=== PATIENT | female | born 1965 | race Caucasian/White ===

== ENCOUNTER → 2017-08-30 19:31 | Outpatient (CLI) | payer OTHER, SELFPAY ==
[2017-09-02 13:50] LABS: HPV Reflexed? NOT INDICATED
== END ==
PROVIDERS: Family Provider Internal Medicine; PCP Internal Medicine; Visit Provider Obstetrics & Gynecology
DX: Z12.4 Encounter for screening for malignant neoplasm of cervix (principal)
CPT/HCPCS: 88175; G0145

== ENCOUNTER → 2017-10-18 16:28 | Outpatient (CLI) | payer OTHER, SELFPAY ==
--- NOTE | 2017-10-18 16:30 | BI_ITS ---
MAMMOGRAPHY - BILATERAL SCREENING REASON FOR EXAM: Female, 52 years old. Routine annual screening examination. PERTINENT HISTORY: Non-contributory. TECHNIQUE: Digital bilateral breast garima (3D mammographic acquisition) in the CC and MLO projections. 2-D mediolateral oblique (MLO) and craniocaudad (CC) views of both breasts were obtained. CAD: Full Field Digital Mammography with Computer Added Detection was performed. COMPARISON: Comparison is made with prior study dated September 04, 2016 and September 04, 2015. FINDINGS: Breast Composition: The breasts are heterogeneously dense, which may obscure small masses. There are no dominant masses or suspicious calcifications. No other significant abnormalities are identified. There has been no significant change since the prior study. BI/SCREENING MAMM (CAD), BILAT IMPRESSION: Stable bilateral screening mammogram. Yearly follow-up mammogram recommended. (A) ASSESSMENT CATEGORY: BIRADS Category 1: Negative. A letter regarding these results will be sent to the patient by the facility within 30 days. Approximately 10% of breast cancers are not detected by mammography. A normal mammogram should not delay biopsy of a clinically suspicious abnormality. [id number] Electronically Signed: Temo Allen MD at 9:26 EDT Tel [phone], Service support ,
== END ==
PROVIDERS: Family Provider Internal Medicine; PCP Internal Medicine; Visit Provider Obstetrics & Gynecology
DX: Z12.31 Encounter for screening mammogram for malignant neoplasm of breast (principal)
CPT/HCPCS: 77063; 77067

== ENCOUNTER → 2018-02-04 08:52 | Outpatient (CLI) | payer OTHER, SELFPAY ==
--- NOTE | 2018-02-04 08:54 | BI_ITS ---
MAMMOGRAPHY - UNILATERAL DIAGNOSTIC: LEFT BREAST REASON FOR EXAM: Female, 52 years old. 4 day history of left-sided breast pain and swelling with redness. The patient is on antibiotics. PERTINENT HISTORY: Non-contributory. TECHNIQUE: Digital unilateral breast garima (3D mammographic acquisition) in the CC and MLO projections. 2-D mediolateral oblique (MLO) and craniocaudad (CC) views of the left breast were obtained. 90 degree lateral and compression spot view of the left breast was obtained as well. CAD: Full Field Digital Mammography with Computer Added Detection was performed. COMPARISON: Comparison is made with prior study dated October 18, 2017. FINDINGS: Breast Composition: The breasts are heterogeneously dense, which may obscure small masses. There now is evidence of a persistent area of architectural distortion in the deep midportion of the left breast. Correlation with ultrasound is recommended. No other significant abnormalities are identified. BI/DIAG MAMM W/CAD, UNILAT IMPRESSION: New persistent area of architectural distortion is seen in the mid deep portion of the left breast as described. Correlation with ultrasound is recommended. ASSESSMENT CATEGORY: BIRADS Category 0: Incomplete. Need additional imaging evaluation. A letter regarding these results will be sent to the patient by the facility within 30 days. Approximately 10% of breast cancers are not detected by mammography. A normal mammogram should not delay biopsy of a clinically suspicious abnormality. Electronically Signed: Temo Allen MD at 10:56 EDT Tel [phone], Service support ,
--- NOTE | 2018-02-04 08:56 | US_ITS ---
STUDY: ULTRASOUND BREAST - LEFT REASON FOR EXAM: Female, 52 years old. Left breast palpable abnormality. Redness and swelling of the left breast. TECHNIQUE: Axial and longitudinal images of the LEFT breast were performed with a high resolution ultrasound transducer. COMPARISON: Mammogram dated February 04, 2018 FINDINGS: LEFT Breast: There is no ultrasound abnormality in the left breast to correlate to the palpable abnormality, redness or swelling. The skin does not appear to be abnormally thickened measuring 3 mm. There are no abnormal fluid collections or masses seen. There is no evidence of cystitis. No suspicious solid masses are seen to suggest malignancy. US/Breast Limited Unilateral IMPRESSION: There is no ultrasound abnormality in the left breast to correlate to the palpable area, swelling or redness. The patient should continue to do monthly self breast exams. If the symptoms do continue, a breast MRI should be considered. ASSESSMENT CATEGORY: BIRADS Category 2: Benign. A letter regarding these results will be sent to the patient by the facility within 30 days. Electronically Signed: Sigrid Parra DO at 14:50 EDT Tel , Service support ,
== END ==
PROVIDERS: Family Provider Internal Medicine; PCP Internal Medicine; Visit Provider Obstetrics & Gynecology
DX: N63.22 Unspecified lump in the left breast, upper inner quadrant (principal)
CPT/HCPCS: 76642; 77061; 77065; G0279

== ENCOUNTER → 2018-10-27 | Outpatient (CLI) | payer OTHER, SELFPAY ==
--- NOTE | 2018-10-27 06:59 | BI_ITS ---
MAMMOGRAPHY - BILATERAL SCREENING 3-D TOMOSYNTHESIS REASON FOR EXAM: Female, 53 years old. Bilateral Screening 3-D tomosynthesis PERTINENT HISTORY: No significant family history. TECHNIQUE: 2-D mammograms and 3-D Tomosynthesis of the breast (s) were performed. CAD was performed. COMPARISON: None. FINDINGS: The breast composition is heterogeneously dense that can obscure small breast masses. Scattered benign calcifications are seen. No dense spiculated masses or suspicious microcalcifications are identified. No architectural distortion is identified. There is no skin thickening or retraction. There has been no significant change since the prior study. BI/SCREENING MAMM (CAD), BILAT IMPRESSION: No mammographic signs of malignancy. Routine yearly mammograms recommended. ASSESSMENT CATEGORY: BIRADS Category 1: Negative. A letter regarding these results will be sent to the patient by the facility within 30 days. FOLLOW UP RECOMMENDATION: Yearly follow up mammogram recommended. (A) Approximately 10% of breast cancers are not detected by mammography. A normal mammogram should not delay biopsy of a clinically suspicious abnormality. Electronically Signed: Jose Crowdre MD at 8:15 EDT , Service support ,
== END | disposition home or self-care (01) ==
PROVIDERS: Family Provider Internal Medicine; PCP Internal Medicine; Referring Provider Obstetrics & Gynecology; Visit Provider Obstetrics & Gynecology
DX: Z12.31 Encounter for screening mammogram for malignant neoplasm of breast (principal)
CPT/HCPCS: 77063; 77067

== ENCOUNTER → 2019-06-06 13:35 | Outpatient (CLI) | payer OTHER, SELFPAY ==
--- NOTE | 2019-06-06 13:45 | BI_ITS ---
MAMMOGRAPHY - UNILATERAL DIAGNOSTIC: RIGHT BREAST REASON FOR EXAM: Female, 53 years old. Right breast lumps following a recent breast reduction surgery. PERTINENT HISTORY: Non-contributory. TECHNIQUE: Digital unilateral breast garima (3D mammographic acquisition) in the CC and MLO projections. 2-D mediolateral oblique (MLO) and craniocaudad (CC) views of both breasts were obtained. CAD: Full Field Digital Mammography with Computer Added Detection was performed. COMPARISON: Comparison is made with prior study dated October 27, 2018. FINDINGS: Breast Composition: The breasts are heterogeneously dense, which may obscure small masses. There are no dominant masses or suspicious calcifications. Since prior study, the patient underwent breast reduction surgery. Now with evidence of the linear densities in the inferior lateral aspect of the right breast at the site of the surgical incision. Correlation with ultrasound is recommended. No other significant abnormalities are identified. BI/DIAG MAMM W/CAD, UNILAT IMPRESSION: Status post breast reduction surgery with the postsurgical changes. Correlation with ultrasound of the right breast is recommended. ASSESSMENT CATEGORY: BIRADS Category 0: Incomplete. Need additional imaging evaluation. A letter regarding these results will be sent to the patient by the facility within 30 days. Approximately 10% of breast cancers are not detected by mammography. A normal mammogram should not delay biopsy of a clinically suspicious abnormality. Electronically Signed: Temo Allen, at 15:31 EST , Service support ,
--- NOTE | 2019-06-06 13:45 | US_ITS ---
STUDY: ULTRASOUND BREAST - RIGHT REASON FOR EXAM: Female, 53 years old. Palpable lumps in the right breast following recent breast reduction surgery. TECHNIQUE: Axial and longitudinal images of the RIGHT breast were performed with a high resolution ultrasound transducer. # OF IMAGES: 18 COMPARISON: Comparison is made with prior mammogram done earlier in the day. FINDINGS: RIGHT Breast: The abnormality corresponds to a 8 mm x 7 mm x 7 mm isoechoic nodule at the 11:00 position of the breast. This is in the retroareolar region. This may represent postoperative changes. Incidental note is made of a 4 mm x 3 mm x 4 mm cyst at the 8:00 position of the breast at 4 cm from the nipple. US/Breast Limited Unilateral IMPRESSION: The palpable abnormality corresponds to an 8 mm x 7 mm x 7 mm hypoechoic nodule in the retroareolar region of the breast at the 11:00 radiant. This most likely represents postoperative changes. ASSESSMENT CATEGORY: BIRADS Category 2: Benign. A letter regarding these results will be sent to the patient by the facility within 30 days. Electronically Signed: Temo Allen, at 14:04 EST , Service support ,
== END ==
PROVIDERS: Family Provider Internal Medicine; PCP Internal Medicine; Referring Provider Obstetrics & Gynecology; Visit Provider Obstetrics & Gynecology
DX: N63.10 Unspecified lump in the right breast, unspecified quadrant (principal)
CPT/HCPCS: 76642; 77061; 77065; G0279

== ENCOUNTER → 2019-06-08 15:26 | Outpatient (CLI) | payer OTHER, SELFPAY ==
[2019-06-08 15:10] VITALS: BMI 26.5
--- NOTE | 2019-06-08 15:28 | RAD_ITS ---
STUDY: X-RAY - LEFT KNEE REASON FOR EXAM: Pain, injury. TECHNIQUE: 4 view(s) of the knee. COMPARISON: None. FINDINGS: Normal visualized distal femur. Normal visualized proximal tibia and fibula. Normal proximal tibiofibular articulation. Normal medial femorotibial compartment. Normal lateral femorotibial compartment. Normal patellofemoral articulation. The soft tissue structures are unremarkable. RAD/Knee 4 or More Views IMPRESSION: Normal x-ray examination of the left knee. Electronically Signed: Magdiel Madsen MD at 15:56 EST Tel , Service support ,
== END ==
PROVIDERS: Family Provider Internal Medicine; PCP Internal Medicine; Referring Provider Orthopaedic Surgery; Visit Provider Orthopaedic Surgery
DX: M25.562 Pain in left knee (principal)
CPT/HCPCS: 73564

== ENCOUNTER 2019-06-22 16:30 | Outpatient (RCR) | payer OTHER, SELFPAY ==
[2019-06-08 15:10] VITALS: BMI 26.5
--- NOTE | 2019-06-15 18:06 | HP.PTEVAL_ITS ---
Patient's Visit Information MARTY KOCH is a 53 year old F referred to Physical Therapy by Cecile Adams DO with a diagnosis of L knee meniscus tear. Date of Evaluation: 06/15/19 Physical Therapist: RAMESH RileyT, OCS, CSCS - Visit Plan Frequency: 1x/Week Duration: 4-6 Weeks Plan: Pt to work on ROM at home via HEP and gradual progression of safe ex program(reviewed avoidance) and f/u in a week to check ROM and stoop and progress exercises in gym verbally until back to normal. Pt to call prior if condition worsens. - Subjective Findings: L knee pain prior to injecion last week. Prior was 01/11 much of time. Worse with twisting or stooping. Trying to avoid them now. Is lifting and running. Does body weight ex yesterday without problem adn ran a mile without incident yesterday. Could not have done any of that last week. Now cannot do jump squat. It was insidious onset in the last month and a half. Enjoys hiking alot and was not a problem 3 months ago. Sleep OK now but not prior to i njection. 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 Limped last week. Life is normal for last couple days. 85% better since injection. - Pain L knee Pain Intensity (Out of 10): 0 Pain Intensity Range: 0, 4 - Objective Walking without deficit, jogging well, steps reciprocal almost jogging without deficit. Squat past 90 without pain but stooping hurts L medially. aROM hurts end range of L knee flexion but full ext without pain. 0 lag with SLR. Flexibility in quad and hips and HS is excellent. Hip and ankle ROM WNL without pain. 5/5 knee adn hip strength today as well as ankle. No sensation deficitis to gross light touch,. - bounce home, - disco. - ant drawer. - valgus and varus. Slight tenderness medially anteriorly at joint line. - Goals Goal 1:: Full aROM and stoop without pain Goal Time Frame: 4-6 Weeks Goal 2:: Back to full worout without pain.(3 miles running) Goal Time Frame: 4-6 Weeks Goal 3:: I appropr HEP Goal Time Frame: 4-6 Weeks Goal 4:: 0% disability on LEFS. - Rehabilitation Potential Physical Therapy Diagnosis: L knee meniscal injury doing rather well after injection. Rehabilitation Potential: Good - Anticipated Interventions Patient/Client Instruction: Educate patient on: Condition, Plan of Care For the Purpose of:: To decrease pain, To increase ROM Therapeutic Exercise to Include: Strength training, Passive ROM, Active ROM For the Purpose of:: To decrease pain, To increase ROM, To increase tolerance to activity/condition/position Thank you for the opportunity to evaluate your patient. For Medicare and Medicare HMO plans, please review the plan of care and approve it. It will need to be FAXED BACK to us at [phone] for Medicare purposes. For Medicare only, by signing this I certify the plan of care. Please let me know if there are questions or concerns regarding this plan of care. Physician Signature: Date:
--- NOTE | 2019-06-22 16:50 | HP.PTDCSUM ---
HP - PT D/C Summary It has been my pleasure to treat MARTY KOCH under orders from Cecile Adams DO, for the diagnosis of L knee meniscus tear for a total of 2 visit(s). Discharge Date: 06/22/19 Please see the following information for a summary of their discharge status. - Subjective Subjective: No pain since last . Ran a mile daily without pain. Lifted weights and squatted without incident. To doctor in a month. Pt comfortable with continuing her workout on her own and will contact doctor if it worsens again. - Pain L knee Pain Intensity (Out of 10): 0 - Overall Improvement % Improvement: 100 - Objective Objective/Function: No pain today with any of the above mentioned activities(jump, squat jump, side shuffle 100%, carioca, skip) except single leg hop side to side L which hurt slightly and transiently. ROM is full and symmetrical with R although L quad is slightly tighter than R adn pt will stretch this at home. Strength is 5/5 at knees ext adn flexion adn 4+ at hips B. rey without pain . OVERALL DOING EXCELLENT AND READY TO BE ON HER OWN VS CONTINUED PT. - Goals Goal 1:: Full aROM and stoop without pain Goal Progress: Goal Met Goal 2:: Back to full worout without pain.(3 miles running) Goal Progress: Progressing Goal 3:: I appropr HEP Goal Progress: Goal Met Goal 4:: 0% disability on LEFS. Goal Progress: 99% - Plan Plan: D/C - D/C Information Discharge Comments: Doing well and ready to be on her own. Will contact doctor if pain worsens. If there are questions or concerns regarding this patient's physical therapy, please feel free to call me at [phone]. Thank you for the referral of this patient. Sincerely, Bud Dasilva, DPT, OCS, CSCS
== END 2019-06-22 19:00 | disposition home or self-care (01) ==
LOC: PT 16:30
PROVIDERS: Family Provider Internal Medicine; PCP Internal Medicine; Referring Provider Orthopaedic Surgery; Visit Provider Orthopaedic Surgery
DX: S83.207D Unspecified tear of unspecified meniscus, current injury, left knee, subsequent encounter (principal)
CPT/HCPCS: 97161; 97530

== ENCOUNTER → 2019-08-29 | Outpatient (CLI) | payer OTHER, SELFPAY ==
[2019-08-29 12:41] VITALS: BMI 26.5
--- NOTE | 2019-08-29 12:44 | RAD_ITS ---
STUDY: X-RAY - LEFT FOOT CLINICAL: Female, 54 years old. Pt. fell a few feet while cleaning, pain lateral TECHNIQUE: 3 view(s) of the foot. COMPARISON: None. FINDINGS: Study is a left foot in 3 projections shows an oblique nondisplaced fracture through the distal diaphysis and metaphysis of the fifth metatarsal the first through fourth toes are otherwise normal. RAD/Foot min 3 Views IMPRESSION: Oblique nondisplaced fracture through the distal diaphysis and metaphysis of the fifth metatarsal. Electronically Signed: John Wilkinson, at 13:01 EST Tel , Service support ,
== END | disposition home or self-care (01) ==
LOC: HPRAD 12:44
PROVIDERS: PCP Internal Medicine; Referring Provider Physician Assistant; Visit Provider Physician Assistant
DX: S99.922A Unspecified injury of left foot, initial encounter (principal)
CPT/HCPCS: 73630

== ENCOUNTER → 2019-09-04 | Outpatient (CLI) | payer OTHER, SELFPAY ==
[2019-08-29 12:41] VITALS: BMI 26.5
--- NOTE | 2019-09-04 13:26 | RAD_ITS ---
STUDY: X-RAY - LEFT FOOT CLINICAL: Follow-up fracture. TECHNIQUE: 3 view(s) of the foot. COMPARISON: Radiographs 08/29/2019. FINDINGS: Normal talus, calcaneus, and tarsal bones. Normal visualized subtalar, talonavicular, calcaneocuboid, tarsal and tarsometatarsal articulations. There is no interval change of the essentially nondisplaced oblique fracture of the distal diaphysis/neck of the fifth metatarsal. Normal metatarsophalangeal joint of the great toe. Normal tibial and fibular sesamoid bones. There is a bipartite tibial sesamoid.. Normal interphalangeal joint of the great toe. Normal phalanges of the great toe. Normal second through fifth metatarsophalangeal joints. Normal interphalangeal joints and phalanges of the lesser toes. The soft tissue structures are unremarkable. RAD/Foot min 3 Views IMPRESSION: No interval change of fifth metatarsal fracture. Electronically Signed: Magdiel Madsen MD at 14:32 EST Tel , Service support ,
== END | disposition home or self-care (01) ==
LOC: HPRAD 13:26
PROVIDERS: PCP Internal Medicine; Referring Provider Physician Assistant; Visit Provider Physician Assistant
DX: S92.353A Displaced fracture of fifth metatarsal bone, unspecified foot, initial encounter for closed fracture (principal)
CPT/HCPCS: 73630

== ENCOUNTER → 2019-09-11 | Outpatient (CLI) | payer OTHER, SELFPAY ==
[2019-09-11 13:57] VITALS: BMI 26.5
--- NOTE | 2019-09-11 14:00 | RAD_ITS ---
STUDY: X-RAY - LEFT FOOT CLINICAL: Pain, fracture 2 weeks ago. TECHNIQUE: 3 view(s) of the foot. COMPARISON: Radiographs 09/04/2019. FINDINGS: Normal talus, calcaneus, and tarsal bones. Normal visualized subtalar, talonavicular, calcaneocuboid, tarsal and tarsometatarsal articulations. There is no interval change of the essentially nondisplaced oblique fracture of the distal diaphysis/neck of the fifth metatarsal. Normal metatarsophalangeal joint of the great toe. Normal tibial and fibular sesamoid bones. There is a bipartite tibial sesamoid. Normal interphalangeal joint of the great toe. Normal phalanges of the great toe. Normal second through fifth metatarsophalangeal joints. Normal interphalangeal joints and phalanges of the lesser toes. The soft tissue structures are unremarkable. RAD/Foot min 3 Views IMPRESSION: No interval change of fifth metatarsal fracture. Electronically Signed: Magdiel Madsen MD at 13:54 EDT Tel , Service support ,
== END | disposition home or self-care (01) ==
LOC: HPRAD 14:00
PROVIDERS: PCP Internal Medicine; Referring Provider Physician Assistant; Visit Provider Physician Assistant
DX: S92.353A Displaced fracture of fifth metatarsal bone, unspecified foot, initial encounter for closed fracture (principal)
CPT/HCPCS: 73630

== ENCOUNTER → 2019-10-03 | Outpatient (CLI) | payer OTHER, SELFPAY ==
[2019-09-11 13:57] VITALS: BMI 26.5
--- NOTE | 2019-10-03 10:00 | RAD_ITS ---
STUDY: X-RAY - LEFT FOOT CLINICAL: Pain, fracture follow-up. TECHNIQUE: 3 view(s) of the foot. COMPARISON: Radiographs 09/11/2019. FINDINGS: Normal talus, calcaneus, and tarsal bones. Normal visualized subtalar, talonavicular, calcaneocuboid, tarsal and tarsometatarsal articulations. There is no significant change of the essentially nondisplaced oblique fracture of the fifth metatarsal. Normal metatarsophalangeal joint of the great toe. Normal tibial and fibular sesamoid bones. There is a bipartite tibial sesamoid. Normal interphalangeal joint of the great toe. Normal phalanges of the great toe. Normal second through fifth metatarsophalangeal joints. Normal interphalangeal joints and phalanges of the lesser toes. The soft tissue structures are unremarkable. RAD/Foot min 3 Views IMPRESSION: No significant change of fifth metatarsal fracture. Electronically Signed: Magdiel Madsen MD at 10:22 EDT Tel , Service support ,
== END | disposition home or self-care (01) ==
LOC: HPRAD 10:00
PROVIDERS: PCP Internal Medicine; Referring Provider Orthopaedic Surgery; Visit Provider Orthopaedic Surgery
DX: M79.672 Pain in left foot (principal)
CPT/HCPCS: 73630

== ENCOUNTER → 2019-10-31 | Outpatient (CLI) | payer OTHER, SELFPAY ==
[2019-10-03 10:08] VITALS: BMI 26.5
--- NOTE | 2019-10-31 09:17 | RAD_ITS ---
STUDY: X-RAY - LEFT FOOT CLINICAL: Continued pain, fracture follow-up. TECHNIQUE: 3 view(s) of the foot. COMPARISON: Radiographs 10/03/2019. FINDINGS: Normal talus, calcaneus, and tarsal bones. Normal visualized subtalar, talonavicular, calcaneocuboid, tarsal and tarsometatarsal articulations. There is an essentially nondisplaced fracture of the fifth metatarsal diaphysis with partial osseous bridging. Normal metatarsophalangeal joint of the great toe. Normal tibial and fibular sesamoid bones. There is a bipartite tibial sesamoid. Normal interphalangeal joint of the great toe. Normal phalanges of the great toe. Normal second through fifth metatarsophalangeal joints. Normal interphalangeal joints and phalanges of the lesser toes. The soft tissue structures are unremarkable. RAD/Foot min 3 Views IMPRESSION: Healing fracture of the fifth metatarsal. Electronically Signed: Magdiel Madsen MD at 9:40 EDT Tel , Service support ,
== END | disposition home or self-care (01) ==
LOC: MTRAD 09:17
PROVIDERS: PCP Internal Medicine; Referring Provider Orthopaedic Surgery; Visit Provider Orthopaedic Surgery
DX: S92.352D Displaced fracture of fifth metatarsal bone, left foot, subsequent encounter for fracture with routine healing (principal)
CPT/HCPCS: 73630

== ENCOUNTER → 2019-11-01 12:41 | Outpatient (CLI) | payer OTHER, SELFPAY ==
[2019-08-10 09:12] VITALS: BMI 26.5
--- NOTE | 2019-08-11 09:46 | HP_ITS ---
Intake Intake Visit Reasons: Left knee Allergies Iodinated Contrast Media [Iodinated Contrast Media - IV Dye] Allergy (Verified 10/22/14 20:14) Hives [facility] Social History (Updated 08/11/19 @ 09:[address] Cecile Adams, ) Smoking Status: Never smoker HPI Left knee: Surgical H&P: Yes Details: Parts of this documentation were recorded by a scribe, this documentation accurately reflects the service provided and the decisions made by me, Dr. Cecile Adams DO 08/10/19 0903. MARTY KOCH is a 54 year old F here today for F/U on left knee. She previously had an injection of her left knee in 06/2019. She states that her pain returned 2 weeks ago and she was running on the treadmill and she started having medial knee pain and she has had this knee pain for about 1.5 weeks and she states that her pain has subsided. She denies having much pain today. Denies numbness, tingling or other associated symptoms. She does have painful mechanical knee pain. Denies an MRI. She did have x-rays in 06/[address] [facility] Reports joint pain, Reports joint swelling, Reports limited joint movement, Reports stiffness Skin/Breast Reports system reviewed and no additional complaints, except as docu Neuro Yes system reviewed and no additional complaints, except as docu Ortho Exam Left Knee Knee ROM: Yes ROM-Extension -20 to 0, No ROM-Flexion 0-140 Examination: Yes med jt line tenderness, Yes Lat jt line tenderness, Yes Pain with flexion Assessment & Plan Problems 1. Acute lateral meniscus tear of left knee, subsequent encounter S83.282D Plan We will put her in a brace today so she can ski next week and reviewed the post op restrictions depending on the procedure. Reviewed the pre-operative plans with the patient. Risks and benefits of the procedure were fully explained, including but not limited to infection, neurovascular injury, continued pain, arthritis, stiffness, need for further surgery, re-injury, DVT, PE, general risks of anesthesia, and loss of limb or life. The patient understands all the risks and does wish to proceed with written consent. Follow up post op or sooner if pain, swelling, numbness or associated symptoms, or concerns develop. All questions answered. Patient in agreement of plan. Coding Level of Care Code Off vis,est,level 4 Diagnoses Acute lateral meniscus tear of left knee, subsequent encounter S83.282D ??Encounter type: subsequent encounter 08/11/19 0946 <Electronically signed by Cecile heller DO> Date _ Cecile Adams DO
[2019-10-31 09:34] VITALS: BMI 26.5
== END ==
PROVIDERS: PCP Internal Medicine; Referring Provider Orthopaedic Surgery; Visit Provider Orthopaedic Surgery
DX: R69 Illness, unspecified (principal)

== ENCOUNTER → 2020-01-23 | Outpatient (CLI) | payer OTHER, SELFPAY ==
[2020-01-23 14:12] VITALS: BMI 26.5
--- NOTE | 2020-01-23 14:54 | RAD_ITS ---
STUDY: X-RAY - LEFT FOOT CLINICAL: Follow-up fifth metatarsal fracture. TECHNIQUE: 3 view(s) of the foot. COMPARISON: Radiographs 10/31/2019. FINDINGS: Normal talus, calcaneus, and tarsal bones. Normal visualized subtalar, talonavicular, calcaneocuboid, tarsal and tarsometatarsal articulations. There is healed fracture deformity of the fifth metatarsal diaphysis. Normal metatarsophalangeal joint of the great toe. Normal tibial and fibular sesamoid bones. There is a bipartite tibial sesamoid. Normal interphalangeal joint of the great toe. Normal phalanges of the great toe. Normal second through fifth metatarsophalangeal joints. Normal interphalangeal joints and phalanges of the lesser toes. The soft tissue structures are unremarkable. RAD/Foot min 3 Views IMPRESSION: Healed fifth metatarsal fracture. Electronically Signed: Magdiel Madsen MD at 7:43 EDT Tel , Service support ,
== END | disposition home or self-care (01) ==
LOC: HPRAD 14:53
PROVIDERS: PCP Internal Medicine; Referring Provider Orthopaedic Surgery; Visit Provider Orthopaedic Surgery
DX: M79.672 Pain in left foot (principal)
CPT/HCPCS: 73630

== ENCOUNTER → 2020-01-26 | Outpatient (CLI) | payer OTHER, SELFPAY ==
[2020-01-23 14:12] VITALS: BMI 26.5
--- NOTE | 2020-01-26 16:13 | MRI_ITS ---
HISTORY: Medial knee pain MRI EXAMINATION OF THELeft KNEE COMPARISON: Knee radiographs on June 08, 2019 TECHNIQUE: Coronal proton density and fat-suppressed T2 and oblique thin coronal through the ACL, sagittal proton density and fat-suppressed T2 and axial fat-suppressed T2 # of images including paperwork:198 FINDINGS: Bones: No evidence of marrow edema. No acute fracture. No osseous neoplasm is noted Ligaments and tendons: The iliotibial band, lateral collateral ligament, biceps femoris tendon, medial collateral ligament, popliteus tendon and the posterior cruciate ligament is intact. The anterior cruciate ligament appears intact Extensor mechanism: The quadriceps tendon and the patellar tendon are intact. The medial and lateral retinaculum are intact Knee joint: Minimal joint effusion. Trace amount of fluid within a popliteal cyst. There is also a trace amount of fluid within the deep infrapatellar bursa Medial compartment: The middle one third of the medial meniscus is extruded centrally. A small amount of fluid is seen within the medial collateral ligament bursa. There is a small flap tear involving the free edge middle one third of the medial meniscus. This is seen best on coronal image 16 series 7. The anterior posterior one thirds are unremarkable the articular cartilage is unremarkable Lateral compartment: No evidence of a meniscal tear. The articular cartilage is intact Patellofemoral articulation: The articular cartilage of the patella and trochlear intact MRI/Lower Ext Joint Only (Routine) IMPRESSION: Small flap tear involving the free edge middle one third of the medial meniscus. There is a trace amount of fluid within the medial collateral ligament bursa Small joint effusion as well as trace amount of fluid within a popliteal cyst at 0700 Reported and signed by: Shandra Campos DO Electronically Signed: Shandra Campos DO at 6:59 EDT Tel , Service support ,
== END | disposition home or self-care (01) ==
LOC: MRI 16:13
PROVIDERS: PCP Internal Medicine; Referring Provider Orthopaedic Surgery; Visit Provider Orthopaedic Surgery
DX: S83.242D Other tear of medial meniscus, current injury, left knee, subsequent encounter (principal)
CPT/HCPCS: 73721

== ENCOUNTER 2020-03-28 12:20 | Day surgery (SDC) | payer OTHER, SELFPAY ==
[2020-02-13 10:13] VITALS: BMI 26.5
--- NOTE | 2020-02-13 12:18 | HP_ITS ---
I have re-examined the patient. There are no clinical changes since date of exam. Intake Intake Visit Reasons: LEFT KNEE Accompanied by: self Is patient in pain?: Yes Pain scale (1-10): 2 Allergies Iodinated Contrast Media [Iodinated Contrast Media - IV Dye] Allergy (Verified 10/03/19 10:08) Hives Medications NK 08/23/19 [History Confirmed 02/13/20] PFSH Social History (Updated 02/13/20 @ 12:[address] Cecile Adams, ) Smoking Status: Never smoker HPI LEFT KNEE: Surgical H&P: Yes Details: Parts of this documentation were recorded by a scribe, this documentation accurately reflects the service provided and the decisions made by me, Dr. Cecile Adams DO 02/13/20 1012. MARTY KOCH is a 54 year old F here today for F/U on left knee after having MRI completed. Patient is continuing to have anterior medial knee pain along with painful popping and clicking. States she is unable to jog or run which are things she enjoys. She does not feel instability for giving out. Denies numbness, tingling or other associated symptoms. ROS Musc Reports as per HPI, Reports joint pain, Reports limited joint movement, Reports stiffness Skin/Breast Reports as per HPI Neuro Yes as per HPI Ortho Exam Left Knee Skin/Wound: Yes CDI, No ecchymosis, No erythema, No swelling Examination: Yes med jt line tenderness, Yes Shane's Test Stability: NML: Anterior Drawer, NML: Shreya, NML: Posterior Drawer, NML: Valgus 0, NML: Valgus 30, NML: Varus 0, NML: Varus 30, NML: Dial 90, NML: Dial 30 KNEE: palpable plica Assessment & Plan Problems 1. Acute medial meniscus tear of left knee, subsequent encounter S83.436D Plan personally reviewed patients MRI of the left knee. Patient educated that she does have a medial meniscus tear. treatment options include do nothing or steroid injection or surgical option with meniscus repair vs meniscectomy. Patient wishes to proceed with left medial meniscus repair. Reviewed the pre- operative plans with the patient. Risks and benefits of the procedure were fully explained, including but not limited to infection, neurovascular injury, continued pain, arthritis, stiffness, need for further surgery, re-injury, DVT, PE, general risks of anesthesia, and loss of limb or life. The patient understands all the risks and does wish to proceed with written consent. Educated that she will be on crutches for 6 weeks post op. Wishes to proceed with surgery as soon as we can get her on the schedule. Follow up post op or sooner if pain, swelling, numbness or associated symptoms, or concerns develop. All questions answered. Patient in agreement of plan. Coding Level of Care Code Off vis,est,level 4 Diagnoses Acute medial meniscus tear of left knee, subsequent encounter S83.242D ??Encounter type: subsequent encounter 02/13/20 1235 <Electronically signed by Cecile heller DO> Date _ Cecile Adams DO
[2020-03-04 16:18] VITALS: BMI 26.5
--- NOTE | 2020-03-28 12:38 | OP.PCM_ITS ---
Report of Operation Date of Procedure: 03/28/20 Pre-Operative Diagnosis: left knee med and lat meniscus tear, oa Post-Operative Diagnosis: same Surgery/Procedure Performed:: salk, pmm, lm repair, ext synovectomy car detailer: none Type of Anesthesia:: General Anesthesiologist: Clinton Joyenr Fluids Replaced: 500cc Description of Procedure: Preop note Patient is a 54-year-old female with continued left knee pain and instability pain along the medial and lateral joint lines. MRI confirms medial meniscus tear questionable lateral meniscus tear and some little bit of arthritic changes. Risk-benefit alternatives surgery discussed with patient risk include but not limited to blood loss, blood clot, infection, neurovascular, failure procedure, loss of life and loss of limb. Patient is aware of like proceed with left knee arthroscopy appears indicated. We discussed the current risk associated COVID-19. While it is understood that there is a community spread of COVID 19 the risk of shelly COVID-19 [address] [facility] is very low, however, the risk cannot be completely mitigated because of the community spread of the disease. We discussed in detail the risk of exposure to and or potential harm posed by the COVID-19 virus with having a surgery/procedure at this time versus the risk of delaying the surgery/procedure. Is not possible to know either the risk of delaying the surgery procedure or chance of getting an infection with perfect accuracy, but a joint decision was made to proceed at this time with a schedule surgery/procedure as indicated on the consent form. Patient was notified that we will need to comply with any screening or testing [facility] wishes to perform or that surgery may be delayed for any positive results. Operative note Patient seen and examined preop holding her. Left knee was marked. Patient brought to the operating room placed supine on the operating table. Signed, anesthesia, antibiotics were administered. Left leg was prepped and draped usual sterile technique with a tourniquet around her upper thigh. All bony prominences well-padded and SCDs placed on her contralateral limb. Left dressings were applied and a brace was applied. Elevate exsanguinated tourniquet was raised her pressure of 250 torr. We marked out anterior lateral anteromedial portal placements. We then created anterior lateral portal with an 11 blade began a diagnostic arthroscopy. Patellofemoral joint was unremarkable moved to the medial joint line. The medial joint line we then created anteromedial portal with under direct visualization. We then probed the unstable meniscus is actually flapped into the medial joint line we pulled it out unable to truncate the unstable radial meniscus tear. We then there was extensive synovitis in the anteromedial anterolateral recesses anteromedial anterior lateral joint which was then resected. The ACL PCL was present within the notch. The moved to the lateral joint line. She had grade 2 fibrillated changes in the central aspect of the lateral tibial plateau as well as the lateral femoral condyle which were gently debrided. The lateral meniscus was then probed it was unstable with a visible tear at red red border from the area of the popliteus tendon posterior to the posterior horn the horn with itself was intact. Then used a shaver and a rasp to debride back the tear which was at the red red borders we decided to repair it. We then used 3 reverse curved insert for reverse curve in standard technique and then reinserted the probe with good stable meniscus. The knee was then irrigated copious muscle sterile saline tourniquet is deflated for total working time of 30 minutes. Portals were closed with interrupted erupted 4-0 nylon stitches. Patient taught procedure well no complication transferred recovery room in stable condition Postoperative note non weightbearing left leg Follow-up on Wednesday with Andrés brace locked in extension during ambulation and at night elevate, ice, ankle pumps Pharmacy has prescription Call with increased pain numbness pain numbness tingling or other issues arise Dragon disclaimer this note was generated with [employer] dictation software. It may contain incorrect words, spelling, and punctuation that were not noted in checking the note before signing. Grafts/Implants Used: 360 fast fix reverse curved -3
--- NOTE | 2020-03-28 12:38 | PCM.DC.ORTHO ---
Discharge Diet: No Restrictions - ttwb operative limb, elevate toes above nose, ankle pumps, ice; follow up on wednesday with joann for dressing change and brace adjustment, call with concerns Discharge Activity: May Not Drive May shower in (days): 1 Ice area for (Minutes): 20 - Every hour while awake. Weight Bearing Status: Weight bearing as tolerated Keep extremity elevated above heart level: Operative Extremity Call your doctor if your incision/area has: Continuous Slow Oozing, Sudden Increased Bleeding, Increased Pain/ Swelling, Increased Redness, Foul Smelling Discharge Call your doctor if you observe: Fever of 101 or Higher, Coldness, Increased Pain, Numbness or Tingling, Change in Color, Calf discomfort Allergies/Adverse Reactions: Allergies Iodinated Contrast Media [Iodinated Contrast Media - IV Dye] Allergy (Verified 03/28/20 13:19) Hives Medications to take at Discharge simvastatin 40 mg tablet 40 mg PO QODAY 03/04/20 L.acidoph,Paracasei, B.lactis [Probiotic] 1 ea PO DAILY 03/21/20 Methylcellulose [Fiber] 500 mg PO BID 03/21/20 Multivit with Calcium,Iron,Min [Multiple Vitamins For Women] 1 ea PO DAILY 03/21/20 Oxycodone HCl/Acetaminophen [Percocet 5/325] 1 - 2 tab PO Q6H PRN PRN 5 Days #28 tab 03/28/20 The following prescriptions were given: Oxycodone HCl/Acetaminophen [Percocet 5/325] 1 - 2 tab PO Q6H PRN PRN 5 Days #28 tab PRN Reason: Pain Transmission Status: Received by [facility] Orders to be completed after discharge: CORONAVIRUS 19, ISABEL SENDOUT Time Frame: 03/22/20, Facility: [facility], Location: Laboratory Primary Care Physician: Erna Hope DO [Primary Care Provider] - Test Results: Test results from this visit will be discussed in further detail at your follow-up appointment, if applicable. Please Follow Up With: Cecile Adams DO - [phone]
[2020-03-28 13:01] VITALS: BP 120/79; PULSE 82; RESP 16; TEMP 37.3; O2SAT 100; BMI 27.3
[2020-03-28] MEDS: Lactated Ringers 1,000 ML 100 ML IV ×2 (13:19→15:00)
[2020-03-28] MEDS: Epinephrine (1 mg/ml) 1 MG/ML VIAL (15:34)
[2020-03-28] MEDS: Mupirocin Ointment 22gm Tube 1 APPLIC (15:34)
[2020-03-28] MEDS: Bupiv/Epi 0.25% 30 ML Vial (15:34)
[2020-03-28] MEDS: Cefazolin 2 GM in 0.9% Normal Saline 100 ML IV (16:20)
[2020-03-28 17:17] VITALS: BP 120/75; BP 120/79; PULSE 86; RESP 16; TEMP 37.1; O2SAT 100
[2020-03-28 17:39] VITALS: BP 120/71; BP 120/79; PULSE 81; RESP 16; O2SAT 97
[2020-03-28 17:44] VITALS: BP 102/88; BP 120/79; PULSE 78; RESP 16; TEMP 37.1; O2SAT 99
[2020-03-28] MEDS: HYDROcodone Bitartrate/Apap 5/325 Tablet PO (17:51)
[2020-03-28 18:53] VITALS: BP 120/79; BP 98/62; PULSE 72; RESP 16; TEMP 36.7; O2SAT 99
== END 2020-03-28 18:55 | disposition home or self-care (01) ==
LOC: SDC 12:20 → AC 12:22
PROVIDERS: PCP Internal Medicine; Referring Provider Orthopaedic Surgery; Visit Provider Orthopaedic Surgery
PROC: (CPT 29882; principal; 2020-03-28 13:45)
DX: S83.242A Other tear of medial meniscus, current injury, left knee, initial encounter (principal); S83.282A Other tear of lateral meniscus, current injury, left knee, initial encounter; M17.12 Unilateral primary osteoarthritis, left knee; E78.00 Pure hypercholesterolemia, unspecified; Z79.899 Other long term (current) drug therapy; X58.XXXA Exposure to other specified factors, initial encounter; Y93.89 Activity, other specified; Y92.89 Other specified places as the place of occurrence of the external cause; Y99.8 Other external cause status
CPT/HCPCS: 01400; 29876; 29880; J7120; J2405

== ENCOUNTER 2020-06-20 16:00 | Outpatient (RCR) | payer OTHER, SELFPAY ==
[2020-04-09 15:18] VITALS: BMI 27.3
--- NOTE | 2020-04-11 15:52 | HP.PTEVAL ---
Patient's Visit Information MARTY KOCH is a 54 year old F referred to Physical Therapy by Dr. Cecile Adams DO with a diagnosis of L knee medial meniscectomy and lateral meniscal repair 03/28/20. Date of Evaluation: 04/11/20 Physical Therapist: Bud Dasilva, RAMESHT, OCS, CSCS - Visit Plan Frequency: 2x /Week Duration: 2 Months Plan: 2x/week for 6-8 total. TTWB L until doctor f/u0-60 flexion L knee until 02/22 then to 90 degree until f/u visit in [place]. Block brace to these measurements. Pt may want some machine instruction for UE and R LE workout while going through therapy to do I before or after session. For L LE work on ROM within limits, patellar mobs, strengthen hip knee and ankles within WB precatuions and progress HEP. May use ice, TENS if needed. - Subjective L meniscal repair 03/28/20. Had knee pain not responding to treatment prior. Now brace locked in extension when amb or sleeping. No exercises yet. Doing APnkle pumps. No pain if she doesn't move it. Feels vulnerable out of brace. Treating delicate. Sleeping not good as brace is hard to sleep in on side. Afraid to go on right side. Toss and turn. No pain meds. Using crutches all the time doing NWB, but is officially TTWB. Took shower today OK, dresses self. Not cooking, cleans a little. 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 Hobbies: Hiking, running, gym(lifting, CV) - Pain L knee Pain Intensity (Out of 10): 0 Pain Intensity Range: 0, 3 - Objective L knee in brace locked in extension upon WB and set o cintia at 60 flexion when unlocked. Dons and doffs I. Incisions subjectively healed and wrapped in compression today. Ambulates in NWB L with crutches too low. Set crutches up properly for her adn shown TTWB whcih she does mod I. Steps with R only two crutches up and down mod I. Trasnfers I. L knee AROM 0-45 AROM, mild stiffness patella distally. R knee AROM 0-137. Hip AROM B WNL as is ankles and strength in ankles 4+, uhip abd and ext 4+ R and 4 L. Flexion is 3+ L and 4 R. reflexes not tested LE. Sensation WNL to gross light touch. No unusual swelling in either LE. - homans - Goals Goal 1:: L knee aROM per protocol on script to symmetrical at 6-8 weeks. Goal Time Frame: 6-8 Weeks Goal 2:: Pain remain 0-2/10 at all times Goal Time Frame: 6-8 Weeks Goal 3:: Walk as allowed by doctor without gait deviations community distances Goal Time Frame: 6-8 Weeks Goal 4:: Steps reciprocal when allowed by doctor Goal Time Frame: 6-8 Weeks Goal 5:: Pt return to gym based workout. Goal Time Frame: 6-8 Weeks - Rehabilitation Potential Rehabilitation Potential: Good - Anticipated Interventions Patient/Client Instruction: Educate patient on: Condition, Plan of Care For the Purpose of:: To decrease pain, To increase ROM, To improve muscle performance and motor function, To increase tolerance to activity/condition/position, To improve ability of physical actions for home/community/work/leisure, To improve gait and locomotor functions Therapeutic Exercise to Include: Strength training, Flexibilty training, Gait and locomotor training, Neuromotor development, Passive ROM, Active ROM For the Purpose of:: To decrease pain, To increase ROM, To improve muscle performance and motor function, To increase tolerance to activity/condition/position, To improve ability of physical actions for home/community/work/leisure, To improve gait and locomotor functions Manual Therapy Techniques to Include: Scar massage, Mobilization, Passive ROM, Soft tissue mobilization For the Purpose of:: To decrease pain, To increase ROM TENS: Yes Cryotherapy (ice pack, ice massage): Yes For the Purpose of:: To decrease pain, To increase ROM Thank you for the opportunity to evaluate your patient. For Medicare and Medicare HMO plans, please review the plan of care and approve it. It will need to be FAXED BACK to us at [phone] for Medicare purposes. For Medicare only, by signing this I certify the plan of care. Please let me know if there are questions or concerns regarding this plan of care. Physician Signature: Date:
--- NOTE | 2020-05-07 14:24 | HP.PTREVAL ---
Dr. Cecile Adams, DO, It has been my pleasure to treat MARTY KOCH over the last 9 visits for L knee medial meniscectomy and lateral meniscal repair 03/28/20. Please see the progress note below for an update on the physical therapy plan of care! Subjective: Saw doctor today and can get ridd of crutches and walk with locked brace for a week then walk bending with brace, then wean. Pain is good, feels tight on front side. Sleeping OK but will do better without brace. Pain 6/10 with bending trasniently. Objective/Function: 0-90 AROM. Tight and painful around 90. 0 lag with SLR. Full extension. Hip strength 4/5 and ankle 4+, knee not tested today. Walks with brace locked in ext without AD easily and safely. OVERALL IMPROVING WELL AND APPROPRIATE TO [facility] PT WITH GOOD PROGNOSIS TOWARD GOALS. Plan Plan: 2x/week for 4 weeks to progress gait(bracelocked FWB until 05/14, then unlock brace for a week, then may wean brace if doing well 05/21). Also progress strength of L LE(pt to [facility] gym R LE ex adn upper body exercise). also ensure ROM progression L and patellar mobs,s tretching upper leg muscles. Goals Goal 1:: L knee aROM per protocol on script to symmetrical at 6-8 weeks. Goal Time Frame: 6-8 Weeks Goal Progress: Progressing Goal 2:: Pain remain 0-2/10 at all times Goal Time Frame: 6-8 Weeks Goal Progress: Progressing Goal 3:: Walk as allowed by doctor without gait deviations community distances Goal Time Frame: 6-8 Weeks Goal Progress: Progressing Goal 4:: Steps reciprocal when allowed by doctor Goal Time Frame: 6-8 Weeks Goal Progress: not yet. Goal 5:: Pt return to gym based workout. Goal Time Frame: 6-8 Weeks Goal Progress: needs L LE. Anticipated Interventions Patient/Client Instruction: Educate patient on: Condition, Plan of Care For the Purpose of:: To decrease pain, To increase ROM, To improve muscle performance and motor function, To increase tolerance to activity/condition/position, To improve ability of physical actions for home/community/work/leisure, To improve gait and locomotor functions Therapeutic Exercise to Include: Strength training, Flexibilty training, Gait and locomotor training, Neuromotor development, Passive ROM, Active ROM For the Purpose of:: To decrease pain, To increase ROM, To improve muscle performance and motor function, To increase tolerance to activity/condition/position, To improve ability of physical actions for home/community/work/leisure, To improve gait and locomotor functions Manual Therapy Techniques to Include: Scar massage, Mobilization, Passive ROM, Soft tissue mobilization For the Purpose of:: To decrease pain, To increase ROM TENS: Yes Cryotherapy (ice pack, ice massage): Yes For the Purpose of:: To decrease pain, To increase ROM Please do not hesitate to contact me at [phone] by phone or if you have questions or concerns regarding this new plan of care! Sincerely, Bud Dasilva, DPT, OCS, CSCS
--- NOTE | 2020-06-06 15:54 | HP.PTREVAL ---
Dr. Cecile Adams, DO, It has been my pleasure to treat MARTY KOCH over the last 17 visits for L knee medial meniscectomy and lateral meniscal repair 03/28/20. Please see the progress note below for an update on the physical therapy plan of care! Subjective: 10 weeks out. To doctor in about two weeks. Doing well. 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 Has done deadlifts. Not tried squats. Sleep is OK. Pain is not an issue typically. Has lots of steps at school 3 flights several times per day. No pain on steps. Activities pretty normal at home. Is walking outside. Has walked and jogged prior to this problem 3x/week. Is walking now. Objective/Function: 0-115 AROM, hard to relax adn painful end range of flexion, improved to 118 with relax and repetition. Walks normal today, steps are reciprocal with diminished eccentric control L. Squat is good to 95 degrees flexion without compensation. Plan Plan: f/u in two weeks to check ROM(past 115), jump inplace, steps(eccentric control), jog on TM and d/c if ding well. Pt to see doctor in meantime. Pt to do HEP in meantime and f/u with doctor(her choice) Will call if problems. Fair prognosis. Goals Goal 1:: L knee aROM per protocol on script to symmetrical at 6-8 weeks. Goal Time Frame: 6-8 Weeks Goal Progress: Progressing Goal 2:: Pain remain 0-2/10 at all times Goal Time Frame: 6-8 Weeks Goal Progress: Goal Met Goal 3:: Walk as allowed by doctor without gait deviations community distances Goal Time Frame: 6-8 Weeks Goal Progress: Goal Met Goal 4:: Steps reciprocal when allowed by doctor Goal Time Frame: 6-8 Weeks Goal Progress: Goal Met Goal 5:: Pt return to gym based workout. Goal Time Frame: 6-8 Weeks Goal Progress: part met. Goal 6:: Pt jog without pain, have 125 aROM flexion, start jumping without pain and show appropriate eccentric control on steps. Goal Time Frame: 2-4 Weeks Goal Progress: NEW GOAL Anticipated Interventions Patient/Client Instruction: Educate patient on: Condition, Plan of Care For the Purpose of:: To decrease pain, To increase ROM, To improve muscle performance and motor function, To increase tolerance to activity/condition/position, To improve ability of physical actions for home/community/work/leisure, To improve gait and locomotor functions Therapeutic Exercise to Include: Strength training, Flexibilty training, Gait and locomotor training, Neuromotor development, Passive ROM, Active ROM For the Purpose of:: To decrease pain, To increase ROM, To improve muscle performance and motor function, To increase tolerance to activity/condition/position, To improve ability of physical actions for home/community/work/leisure, To improve gait and locomotor functions Manual Therapy Techniques to Include: Scar massage, Mobilization, Passive ROM, Soft tissue mobilization For the Purpose of:: To decrease pain, To increase ROM TENS: Yes Cryotherapy (ice pack, ice massage): Yes For the Purpose of:: To decrease pain, To increase ROM Please do not hesitate to contact me at [phone] by phone or if you have questions or concerns regarding this new plan of care! Sincerely, Bud Dasilva, DPT, OCS, CSCS
--- NOTE | 2020-06-20 16:22 | HP.PTDCSUM ---
"It has been my pleasure to treat MARTY KOCH referred by Dr. Cecile Adams DO, with the diagnosis of L knee medial meniscectomy and lateral meniscal repair 03/28/20 for a total of 18 visit(s). Discharge Date: 06/20/20 Please see the following information for a summary of their discharge status. Subjective: saw doctor Wednesday, she is happy even with some stiffness. Pain is not an issue as long as I take care of it. Sleeping OK. Activities at home are normal. Still not running and being careful at the gym with deep knee bending. Did lunges with weight without an issue. Doing elliptical and bike. Jogged a lap at e|tab. L knee Pain Intensity (Out of 10): 4 % Improvement: 85 Objective/Function: 0-135 aROM L knee, 0-140 R. Tightness persists in front of knee but improving.Jumps today without pain. Walks normal, steps two at a time without a problem. Lunges easily. Deep squat is slightly painful on medial L knee, taught to avoid this with wweight through it but test it with body weight squats. Overall doing great and ready to be on own. Goal 1:: L knee aROM per protocol on script to symmetrical at 6-8 weeks. Goal Progress: Goal Met Goal 2:: Pain remain 0-2/10 at all times Goal Progress: Goal Met Goal 3:: Walk as allowed by doctor without gait deviations community distances Goal Progress: Goal Met Goal 4:: Steps reciprocal when allowed by doctor Goal Progress: Goal Met Goal 5:: Pt return to gym based workout. Goal Progress: Goal Met Goal 6:: Pt jog without pain, have 125 aROM flexion, start jumping without pain and show appropriate eccentric control on steps. Goal Progress: Goal Met Plan: d/c If there are questions or concerns regarding this patient's physical therapy, please feel free to call me at [phone]. Thank you for the referral of this patient. Sincerely, Bud Dasilva, DPT, OCS, CSCS"
== END 2020-06-20 19:00 | disposition home or self-care (01) ==
LOC: PT 16:00
PROVIDERS: PCP Internal Medicine; Referring Provider Orthopaedic Surgery; Visit Provider Orthopaedic Surgery
DX: Z47.89 Encounter for other orthopedic aftercare (principal)
CPT/HCPCS: 97014; 97110; 97113; 97140; 97161; 97164; 97530; G0283

== ENCOUNTER → 2021-01-16 15:17 | Outpatient (CLI) | payer OTHER, SELFPAY ==
[2020-04-09 15:18] VITALS: BMI 27.3
--- NOTE | 2021-01-16 15:20 | BI_ITS ---
MAMMOGRAPHY - BILATERAL SCREENING REASON FOR EXAM: Female, 55 years old. Routine annual screening examination. PERTINENT HISTORY: Non-contributory. History of prior breast reduction surgery. TECHNIQUE: Digital bilateral breast benny (3D mammographic acquisition) in the CC and MLO projections. 2-D mediolateral oblique (MLO) and craniocaudad (CC) views of both breasts were obtained. CAD: Full Field Digital Mammography with Computer Added Detection was performed. COMPARISON: Comparison is made with prior examination dated 10/27/2018 and 02/04/2018. FINDINGS: Breast Composition: There are scattered areas of fibroglandular density. There are no dominant masses or suspicious calcifications. No other significant abnormalities are identified. There has been no significant change since the prior study. BI/SCRN MAMM (CAD)W/BENNY BILAT IMPRESSION: Stable bilateral screening mammogram. Yearly follow-up mammogram recommended. (A) ASSESSMENT CATEGORY: BIRADS Category 1: Negative. A letter regarding these results will be sent to the patient by the facility within 30 days. Approximately 10% of breast cancers are not detected by mammography. A normal mammogram should not delay biopsy of a clinically suspicious abnormality. [id number] Electronically Signed: Temo Allen MD at 8:04 EDT , Service support ,
--- NOTE | 2021-01-16 15:23 | BD_ITS ---
STUDY: DUAL ENERGY X-RAY ABSORPTIOMETRY / DXA REASON FOR EXAM: Female, 55 years old. [id number]. Patient is postmenopausal. TECHNIQUE: Bone Mineral Density (BMD) measurements of lumbar spine and bilateral hips were obtained. COMPARISON: None. FINDINGS: Lumbar Spine (L1-L4): g/cm2 (0.821) / T-score (-2.1) / Z-score (-1.0) Findings are suggestive of osteopenia with a high fracture risk. Left Femur Total: g/cm2 (0.816) / T-score (-1.0) / Z-score (-0.4) Left Femoral Neck: g/cm2 (0.719) / T-score (-1.2) / Z-score (-0.1) Right Femur Total: g/cm2 (0.875) / T-score (-0.5) / Z-score (0.1) Right Femoral Neck: g/cm2 (0.779) / T-score (-0.6) / Z-score (0.4) BD/Dexa Bone Density Study IMPRESSION: The patient is considered osteopenic as outlined below according to World [employer] Organization (WHO) criteria with a high fracture risk. Reference Information: The T-score is the number of standard deviations above or below the standard which is normal for young adults at their peak bone mineral density. The World Health Organization (WHO) interprets the T-scores as follows: Above -1 Normal bone density Between -1 and -2.5 Osteopenia Equal to / or below -2.5 Osteoporosis As a practical clinical guideline, osteopenia may be graded as follows: Mild -1 through -1.5 Moderate -1.6 through -2.0 Severe -2.1 through -2.4 The Z-score is the number of standard deviations above or below age-matched controls. A Z-score of less than -1.5 would be considered abnormal. References: 1. NIH Osteoporosis and Related Bone Diseases www osteo.org 2. International Society for Clinical Densitometry www iscd.org 3. National Osteoporosis Foundation www nof.org Electronically Signed: Temo Allen MD at 13:26 EDT , Service support ,
== END ==
PROVIDERS: PCP Internal Medicine; Referring Provider Internal Medicine; Visit Provider Internal Medicine
DX: Z78.0 Asymptomatic menopausal state (principal); Z12.31 Encounter for screening mammogram for malignant neoplasm of breast
CPT/HCPCS: 77063; 77067; 77080

== ENCOUNTER → 2022-01-19 | Outpatient (CLI) | payer OTHER, SELFPAY ==
--- NOTE | 2022-01-19 08:13 | BI_ITS ---
MAMMOGRAPHY - BILATERAL SCREENING REASON FOR EXAM: Female, 56 years old. Routine annual screening examination. PERTINENT HISTORY: Non-contributory. History of prior bilateral breast reduction surgery. TECHNIQUE: Digital bilateral breast benny (3D mammographic acquisition) in the CC and MLO projections. 2-D mediolateral oblique (MLO) and craniocaudad (CC) views of both breasts were obtained. CAD: Full Field Digital Mammography with Computer Added Detection was performed. COMPARISON: Comparison is made with prior study dated 01/16/2021 and 06/06/2019. FINDINGS: Breast Composition: There are scattered areas of fibroglandular density. There are no dominant masses or suspicious calcifications. No other significant abnormalities are identified. There has been no significant change since the prior study. BI/SCRN MAMM (CAD)W/BENNY BILAT IMPRESSION: Stable bilateral screening mammogram. Yearly follow-up mammogram recommended. (A) ASSESSMENT CATEGORY: BIRADS Category 1: Negative. A letter regarding these results will be sent to the patient by the facility within 30 days. Approximately 10% of breast cancers are not detected by mammography. A normal mammogram should not delay biopsy of a clinically suspicious abnormality. [id number] Electronically Signed: Temo Allen MD at 9:05 EDT ,
== END | disposition home or self-care (01) ==
PROVIDERS: PCP Internal Medicine; Referring Provider Internal Medicine; Visit Provider Internal Medicine
DX: Z12.31 Encounter for screening mammogram for malignant neoplasm of breast (principal)
CPT/HCPCS: 77063; 77067

== ENCOUNTER 2022-08-15 10:16 | Emergency (ER) | payer OTHER, SELFPAY ==
[2022-08-15 10:17] VITALS: BP 135/83; PULSE 76; RESP 18; TEMP 36.4; O2SAT 100; BMI 27.4
--- NOTE | 2022-08-15 11:03 | EDS_ITS ---
HPI History of Present Illness Chief Complaint: Dental Informant: patient Onset/Context/Timing Onset: Days Context: Gradual Onset Timing: Continuous Current Severity: Mild Relieved by: NSAIDs Narrative Narrative: 57-year-old female history of hypothyroidism. On the fourth had root canal done in 2 front teeth by a local dentist. Since then she has had some mild discomfort and swelling. She initially was on amoxicillin which he then switched over to Augmentin 500 3 times daily. She was concerned she is not getting better so she came to the emergency department. She is the [id number] one of our emergency physicians. Prior similar symptoms: No Recent Illness/Hospitalization: No PFSH PFSH Home Medications simvastatin 40 mg tablet 40 mg PO QODAY 03/04/20 [History Last Taken Unknown] L.acidoph, paracasei,B. lactis 10 billion cell capsule 1 ea PO DAILY 03/21/20 [History Last Taken Unknown] mgyfocxfbmuq-Lg-vfuu-minerals 1 ea PO DAILY 03/21/20 [History Last Taken Unkno wn] amoxicillin 875 mg-potassium clavulanate 125 mg tablet 1 tab PO BID #14 tabs 08/15/22 [Rx Last Taken Unknown] Allergy/AdvReac Type Severity Reaction Status Date / Time Iodinated Contrast Media Allergy Hives Verified 08/15/22 10:19 [Iodinated Contrast Media - IV Dye] Social History Smoking Status: Never smoker ROS ROS ED ROS Narrative No fever or chills. Review of Systems ROS Unobtainable: Denies due to encephalopathy Constitutional Constitutional ED: Denies chills or fever(s) Eyes Eyes: Denies blurry vision ENT ENT ED: Denies ear pain Cardiovascular Cardiovascular: Denies chest pain or palpitations Respiratory/Chest Respiratory/Chest: Denies cough or dyspnea Gastrointestinal Gastrointestinal: Denies abdominal pain Genitourinary Genitourinary ED: Denies dysuria or hematuria Musculoskeletal Musculoskeletal: Denies arthralgias or back pain Integumentary Denies abscess or Abrasions Neurologic Neurologic: Denies headache(s) Psychiatric Psychiatric: Denies anxiety Endocrine Endocrinology: Denies cold intolerance Hematologic/Lymphatic Hematologic/Lymphatic: Denies easy bleeding Allergic/Immunologic Allergic/Immunologic ED: Denies mouth swelling or tongue swelling EXAM Physical Exam Narrative Exam Narrative: Well-appearing 37-year-old female. Vital signs stable afebrile. pre sent in room. H EENT exam unremarkable. No significant facial or jaw swelling. She has a permanent bridge on her front upper teeth. There is no significant gingival swelling. No abscess or drainage seen. No trismus. Posterior pharynx normal. Tongue and submental region normal. Neck nontender no lymphadenopathy. Lungs clear. Heart regular rhythm. Otherwise exam unremarkable. Const Vital Signs: 08/15/22 10:17 Temperature 97.6 F L Temperature Source Temporal Pulse Rate 76 Respiratory Rate 18 Blood Pressure 135/83 H Blood Pressure Mean 100 Pulse Ox 100 Oxygen Delivery Method Room Air Positive well nourished and well developed; Negative for obese, cachectic, c ontractures or unkempt General Appearance ED: well developed and NAD; Negative for unkempt, cachectic, contractures or pallor Nutritional Appearance: Negative for cachectic or obese HEENT Denies other Negative for trauma, tenderness or other Face and Sinus: Negative for sinuses nontender Mouth ED: Yes oral and palatal mucosa normal, Yes lips normal, Yes tongue normal, Yes salivary gland normal, No mouth trauma and No salivary gland abnormal Mouth: oral and palatal mucosa normal, lips normal, tongue normal, salivary gland normal, No mouth trauma and No salivary gland abnormal Teeth and Gingiva: Negative for abnormal tooth and associated gingiva Throat: posterior oropharynx normal Eyes PERRL and EOMs intact bilaterally General Eye ED: Negative for pale conjunctiva or scleral icterus Neck no lymphadenopathy, supple and no JVD General: normal visual inspection; Negative for anterior neck swelling, te nderness or submandibular swelling Lymph Lymphatic: no lymphadenopathy noted; Negative for lymphadenopathy Chest Wall inspection of chest normal and palpation of chest normal Chest: Negative for other Resp normal respiratory effort, no retractions and clear to auscultation bilaterally Cardio regular rate, regular rhythm, S1 normal heart sound, S2 normal heart sound and no murmurs Jugular Venous Distention: Negative for other Palpation: Negative for palpable S3 Rate: Negative for bradycardia Rhythm: Negative for abnormal rhythm GI normal to inspection, nondistended, normoactive bowel sounds, non-tender, non- distended and no masses Inspection: Negative for other Palpation: soft Back/Spine Negative for no CVA tenderness Extremity normal to inspection and no joint enlargement General Extremety ED: Negative for edema or other findings General Extremity: Negative for edema or other findings Neuro oriented x3, CN's II-XII intact bilaterally, moves all extremities, no focal motor deficits and no sensory deficits noted Sensorium / Orientation: alert, oriented to person, oriented to place and oriented to time; Negative for orientation impaired Motor Exam: strength 5/5 throughout Psych mental status grossly normal Appearance: Negative for unkempt Attitude: No agitated Mood & Affect: Negative for depressed Skin no rashes or lesions noted and no wounds General Skin Exam: Negative for pallor MDM MDM MDM Narrative Medical decision making narrative: 57-year-old status post root canal teeth x2. Currently on Augmentin 500 3 times daily. Concerned she may have developed an abscess. Face and dentition are unremarkable. Exam is benign. There is no significant swelling or tenderness. She and I and her [id number] discussed CAT scan I do not think clinically is necessary at this time but did offer to the patient for peace of mind she is deferring at this time. She will continue on her Augmentin constipation. I will give her an additional week's worth of 875 twice daily. She will follow-up with her dentist that did the root canal. Discharge Plan Triage Chief Complaint: Dental ED Provider: Micah Krishna Dx/Rx/DC Orders Clinical Impression: Pain, dental, Dental infection Instructions: ED Dental Pain Prescriptions: New amoxicillin-pot clavulanate 875-125 mg tablet 1 tab PO BID Qty: 14 0RF No Action simvastatin 40 mg tablet 40 mg PO QODAY orqionuxcusq-Dh-vzeb-minerals 1 EACH tablet 1 ea PO DAILY L.acidoph, paracasei,B. lactis 1 EACH capsule 1 ea PO DAILY Primary Care Provider: Erna Hope Referrals: Erna Hope DO [Primary Care Provider] - Activity Restrictions/Additional Instructions: Tylenol and Motrin for pain. Ice to your face. Follow-up with the dentist that did the root canal. Continue your Augmentin for at least 1 more week. Disposition Disposition: Home, Self Care
== END 2022-08-15 11:18 | disposition home or self-care (01) ==
LOC: ED 11:13
PROVIDERS: Emergency Provider Emergency Medicine; PCP Internal Medicine; Visit Provider Emergency Medicine
DX: K04.7 Periapical abscess without sinus (principal)
CPT/HCPCS: 99282

== ENCOUNTER 2023-01-26 16:25 | Inpatient (IN) | payer OTHER, SELFPAY ==
[2023-01-26 16:27] VITALS: BP 117/75; PULSE 74; RESP 16; TEMP 36.2; O2SAT 97
--- NOTE | 2023-01-26 16:46 | EDS_ITS ---
HPI History of Present Illness Chief Complaint: Cellulitis Informant: patient Narrative Narrative: Patient has had 2 days of gradual onset of pain, redness of the right upper extremity, started in the biceps area along with some swelling there, hurts to move. At first could not tell if it was her muscle or the skin, but as it has spread both distally and proximally, it seems that it is just the skin mostly. Was prescribed cephalexin just over a day ago, has taken 4 doses of it, and the redness continues to spread both proximally and distally. In the last 24 hours has developed subjective fevers although when she took her temperature she did not have a true fever, she had tachycardia just over 100, and has felt just poorly and achy all over. No symptoms otherwise. Just prior to the development of this, she was at the gym 1 or 2 weeks ago, and developed a sore tender area just proximal to the right elbow, and redness began to spread from here until it was incised and drained, she was on Bactrim and cephalexin, but failing that for over 1 week until the I&D was performed and then this area improved to complete resolution before this started. [facility] Medical History (Updated 01/26/23 @ 19:[address] Catalino Carr MD) Hyperlipidemia Home Medications simvastatin 40 mg tablet 40 mg PO QODAY 03/04/20 [History Last Taken Unknown] L.acidoph, paracasei,B. lactis 10 billion cell capsule 1 ea PO DAILY 03/21/20 [History Last Taken Unknown] jtnnzhphbcrz-Es-zyta-minerals 1 ea PO DAILY 03/21/20 [History Last Taken Unknown] amoxicillin 875 mg-potassium clavulanate 125 mg tablet 1 tab PO BID #14 tabs 08/15/22 [Rx Last Taken Unknown] Allergy/AdvReac Type Severity Reaction Status Date / Time Iodinated Contrast Media Allergy Hives Verified 01/26/23 16:26 [Iodinated Contrast Media - IV Dye] sulfamethoxazole Allergy Hives Verified 01/26/23 16:26 [From Bactrim] trimethoprim [From Bactrim] Allergy Hives Verified 01/26/23 16:26 Surgical History (Updated 01/26/23 @ 19:[address] Madelaine Delgado MD) History of surgery on lower extremity Social History Smoking Status: Never smoker ROS ROS ED Constitutional Constitutional ED: Reports fever(s) and subjective; Denies chills Eyes Eyes: Denies change in vision or diplopia ENT ENT ED: Denies rhinorrhea or sore throat Cardiovascular Cardiovascular: Denies chest pain or palpitations Respiratory/Chest Respiratory/Chest: Denies cough or dyspnea Gastrointestinal Gastrointestinal: Denies abdominal pain, diarrhea, nausea or vomiting Genitourinary Genitourinary ED: Denies dysuria or hematuria Musculoskeletal Musculoskeletal: Reports back pain, extremity pain and myalgias; Denies neck pain or numbness Integumentary Reports rash; Denies abscess Neurologic Neurologic: Denies headache(s), paresthesias or weakness Psychiatric Psychiatric: Denies anxiety or suicidal thoughts EXAM Physical Exam Const Vital Signs: 01/26/23 16:27 01/26/23 17:14 01/26/23 19:15 Temperature 97.1 F L 98.3 F Temperature Source Temporal Oral Pulse Rate 74 74 Respiratory Rate 16 16 Blood Pressure 117/75 102/67 Blood Pressure Mean 89 78 Pulse Ox 97 96 Oxygen Delivery Method Room Air Room Air Room Air Positive well nourished and well developed General Appearance ED: well developed and NAD HEENT Reports moist mucous membranes normocephalic and atraumatic Eyes PERRL and EOMs intact bilaterally Neck full ROM and supple Chest Wall inspection of chest normal and palpation of chest normal Resp normal respiratory effort and clear to auscultation bilaterally Cardio regular rate, regular rhythm and no murmurs Rate: Negative for tachycardic GI non-tender and non-distended Auscultation: normoactive bowel sounds Palpation: soft Back/Spine no CVA tenderness Back/Spine Narrative: Right upper lateral back, basically posterior to the axilla, extension of tender cellulitis without induration or abscess General Back: other FROM Extremity Extremity Narrative: patchy tender erythema right upper extremity from the forearm up to the shoulder and into the back, does not include the axilla and there is no axillary lymphadenopathy. All compartments are soft and nondistended. No palpable cords. No focal induration or abscess or obvious nidus for infection. There is a recently healed abscess that is nontender in the same extremity, just proximal to the right elbow posterolaterally. General Extremety ED: Yes tenderness; Negative for edema or pulses abnormal General Extremity: Negative for edema or pulses abnormal Neuro oriented x3, CN's II-XII intact bilaterally and no sensory deficits noted Sensorium / Orientation: awake and alert Motor Exam: strength 5/5 throughout Psych mental status grossly normal Skin no wounds Skin Narrative: Patchy erythema right upper extremity without obvious nidus for infection. No abscess. See above. no purpura, no petechia. No bullae. MDM MDM MDM Narrative Medical decision making narrative: Labs including D-dimer, CPK, lactic acid as part of septic work-up, blood cultures, and an x-ray of the humerus where the worst is in the area and the process started, all obtained concern for infection here less likely to be venous thromboembolic disease. A D-dimer is nonspecifically elevated, but just barely even when corrected for age, but vascular is not available at this time for upper extremities, so that we will have to wait. My suspicion is low and not high enough to empirically anticoagulate. The rest of the tests are unremarkable. There is a trend toward leftward shift but her total white blood count is only 6.1. 2 view x-ray of the humerus obtained and on my interpretation shows no subcutaneous emphysema, and clinically I am not concerned about necrotizing fasciitis and this argues against it as well. My concern is that she had what was likely a MRSA infection before and now she has what appears to be a different infection that I think is more likely to be strep but it is not responding to the antibiotic she has been taking for over 24 hours. Therefore I am ordering vancomycin IV and referring her to the hospitalist for admission. Lab Data Attestation: I reviewed the patient's lab results. Labs: Laboratory Results - last 24 hr 01/26/23 17:05 WBC 6.1 RBC 3.63 L Hgb 11.8 L Hct 34.6 L MCV 95.3 MCH 32.5 H MCHC 34.1 RDW Std Deviation 43.3 RDW Coeff of Yoselin 12.4 Plt Count 171 MPV 9.3 Immature Gran % (Auto) 0.300 Neut % (Auto) 84.1 H Lymph % (Auto) 8.5 L [place] % (Auto) 6.4 Eos % (Auto) 0.2 Baso % (Auto) 0.5 Absolute Neuts (auto) 5.1 Absolute Lymphs (auto) 0.52 L Nucleated RBC % 0 Differential Comment SCANNED PT 15.6 H INR 1.2 APTT 34.3 D-Dimer Quant (PE/DVT) 0.62 H* Sodium 135 L Potassium 3.6 Chloride 102 Carbon Dioxide 26.0 Anion Gap 7 BUN 12 Creatinine 0.79 Est GFR (MDRD) Af Amer 96 Est GFR (MDRD) Non-Af 80 BUN/Creatinine Ratio 15.1 Glucose 99 Lactic Acid 1.0 Calcium 8.8 Total Bilirubin 0.80 AST 37 ALT 60 H Alkaline Phosphatase 158 H Total Creatine Kinase 59 Total Protein 7.9 Albumin 3.7 Globulin 4.2 Albumin/Globulin Ratio 0.9 Radiography Diagnostic Testing: Clinical Impression(s) from Imaging Studies Humerus X-Ray 01/26/23 17:48 IMPRESSION: Inflammatory changes in the soft tissues of the distal forearm and elbow without definitive evidence for acute osteomyelitis. Electronically Signed: Mars Bautista MD at 18:42 EDT , Management Discussion w/another healthcare provider: Hospitalist Discharge Plan Dx/Rx/DC Orders Clinical Impression: Cellulitis of right upper extremity, Failure of outpatient treatment Disposition Disposition: Acute Care [facility]
[2023-01-26 17:28] LABS: Absolute Lymphocyte Count 0.52 X10^3/uL (0.83-4.51); Absolute Neutrophil Count 5.1 X10^3/uL (2.0-7.7); Basophil# 0.03 X10^3/uL; Basophil% 0.5 % (0-1); Eosinophil# 0.01 X10^3/uL; Eosinophils% 0.2 % (0-5); Hematocrit 34.6 % (37-47); Hemoglobin 11.8 g/dL (12.0-15.0); Lymphocyte # 0.52 X10^3/ul (0.83-4.51); Lymphocyte % 8.5 % (19-41); Mean Corp Hgb Conc 34.1 g/dL (32-36); Mean Corpuscular Hgb 32.5 pg (27.0-32.0); Mean Corpuscular Volume 95.3 fL (81-99); Mean Platelet Vol. 9.3 fl (6.2-12.0); Monocyte# 0.39 X10^3/uL; Monocyte% 6.4 % (0-10); NRBC Flagged by Analyzer 0 % (0-5); Neutrophil # 5.14 X10^3/uL (2.7-7.7); Neutrophil % 84.1 % (47-70); POSITIVE DIFFERENTIAL YES; Platelet Count 171 K/mm3 (150-450); RBC Distribution Width CV 12.4 % (11.6-14.6); RBC Distribution Width SD 43.3 fl (35.1-43.9); Red Blood Count 3.63 M/mm3 (4.2-5.4); White Blood Count 6.1 K/mm3 (4.4-11.0)
[2023-01-26 17:29] LABS: Differential Indicated SCAN CRITERIA MET
[2023-01-26 17:33] LABS: International Normalized Ratio 1.2; Prothrombin Time (Protime)PT. 15.6 SECONDS (11.7-14.9)
[2023-01-26 17:34] LABS: Partial Thromboplast Time 34.3 Seconds (24.1-36.2)
[2023-01-26 17:41] LABS: ALB/GLOB Ratio 0.9 RATIO (0.9-2.4); AST(SGOT) 37 U/L (15-37); Alanine Aminotransfer ALT/SGPT 60 U/L (13-56); Albumin, Serum 3.7 g/dL (3.2-5.0); Alkaline Phosphatase 158 U/L (45-117); Anion Gap 7 (5-15); BUN 12 mg/dL (7-18); BUN/Creat Ratio 15.1 RATIO (10-20); CPK Total, Creatine Kinase 59 U/L (26-192); Calcium,Total 8.8 mg/dL (8.5-10.1); Chloride 102 mmol/L (98-107); Creatinine, Serum 0.79 mg/dL (0.55-1.02); EST Glomerular Filtration Rate 80 mL/min (>60); Est Glom Filt Rate - Afr Amer 96 mL/min (>60); Globulin 4.2 g/dL (2.2-4.2); Glucose 99 mg/dL (74-106); Potassium 3.6 mmol/L (3.5-5.1); Protein, Total 7.9 g/dL (6.4-8.2); Sodium Level 135 mmol/L (136-145)
--- NOTE | 2023-01-26 17:48 | RAD_ITS ---
STUDY: X-RAY - RIGHT HUMERUS REASON FOR EXAM: Female, 57 years old. soft tissue infection TECHNIQUE: AP and lateral view(s) of the humerus. COMPARISON: None. FINDINGS: Normal visualized humerus. There is no demonstrated fracture or osseous destructive process. Soft tissue swelling and probable cellulitis of the soft tissues of the volar medial aspect of the elbow and distal humerus. No definitive evidence for acute osteomyelitis however MRI would be useful for further evaluation if clinically indicated RAD/Humerus min 2 Views IMPRESSION: Inflammatory changes in the soft tissues of the distal forearm and elbow without definitive evidence for acute osteomyelitis. Electronically Signed: Mars Bautista MD at 18:42 EDT ,
[2023-01-26 17:53] LABS: D-Dimer Quantitative (DVT/PE) 0.62 FEU/ug/m (0.27-0.49)
[2023-01-26 18:11] LABS: Differential Comment SCANNED
--- NOTE | 2023-01-26 18:15 | VDUE_ITS ---
Reason For Study: Rt Arm Pain Right Proximal Right jugular vein is spontaneous, widely patent, phasic, with no intraluminal echogenicity noted. Right subclavian vein is spontaneous, widely patent, phasic, with no intraluminal echogenicity noted. Right Lower Arm Right radial vein is compressible. Right ulnar vein is compressible. Right Arm Right axillary vein is spontaneous, patent, phasic, competent, compressible and demonstrates augmentation. Right brachial vein is compressible. Right cephalic vein is compressible. Right basilic vein is compressible. VL/Venous Duplex US, Unilateral Interpretation Summary No evidence for acute deep venous thrombosis[right] upper extremity with patent and compressible cephalic and basilic veins. Ordering Physician: Catalino Carr Referring Physician: Edin Harry Performed By: Josias Whelan RVT ???
[2023-01-26 19:15] VITALS: BP 102/67; PULSE 74; RESP 16; TEMP 36.8; O2SAT 96
--- NOTE | 2023-01-26 19:37 | PCM.HP.STD ---
HPI - General General Date of Admission: 01/26/23 Date of Service: 01/26/23 Chief Complaint: RUE cellulitis, failed outpatient abx therapy, recurrent, worsening. HPI Narrative The patient is a 57 y/o F w/ PMHx: HLD, Suspected Chronic normocytic anemia who presents to the [facility] ED on 01/26/23 with history of 2 days of gradual progressively worsening right upper extremity pain, redness as well as swelling with increased pain with activity attempts with redness and swelling eventually spreading both distally and proximally with evaluation 24 hours prior with initiation of Keflex with 4 doses taken however the redness is continued to spread with onset of subjective fevers and sensation of racing heart as well as aching and malaise prompting eventual ED evaluation. She notes that just prior to the development of this she had been at the gym 1 to 2 weeks prior and had a sore area just proximal to the right elbow and the redness began to spread from there placed on Bactrim and Keflex however did not improve with a follow-up incision and drainage 1 week prior to current presentation with then improvement and resolution of redness at that time however again as noted and just recently restarted. During the prior I+D of note there was not purulence in the cavity. 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 She does admit to also nausea, decreased appetite, subjective fever as well as palpitations/tachycardia with this presentation work-up in the ED included T98.3, heart rate 74, BP 102/67, respiratory rate 16, 96% on room air, CBC with WBC 6.1, hemoglobin 11.8, MCV 95.3, platelet 171 with no marked left shift with lymphopenia, coags with PT 15.6, INR 1.2, PTT 34.3, D-dimer 0.62, CMP with sodium 135, AST/ALT 37/60, alk phos 158, total creatinine kinase 59, plain film of the right humerus with inflammatory changes in the soft tissues of the distal forearm and elbow without definitive evidence of acute osteomyelitis, blood culture x2 pending per ED, rapid SARS COVID antigen negative, right upper extremity duplex ultrasound ordered per ED physician and pending upon requested evaluation of patient. In the ED patient ministered 1 L normal saline. [facility] Medical History (Updated 01/26/23 @ 20:[address] Madelaine Delgado MD) Hyperlipidemia Home Medications simvastatin 40 mg tablet 40 mg PO QODAY cholestrol 03/04/20 [History Last Taken 01/24/23 22:00] calcium carb-ergocalciferol (vit D2) 600 mg calcium-200 unit tablet tab PO DAILY supplement 01/26/23 [History Last Taken Unknown] Allergy/AdvReac Type Severity Reaction Status Date / Time Iodinated Contrast Media Allergy Hives Verified 01/26/23 16:26 [Iodinated Contrast Media - IV Dye] sulfamethoxazole Allergy Hives Verified 01/26/23 16:26 [From Bactrim] trimethoprim [From Bactrim] Allergy Hives Verified 01/26/23 16:26 Family History Mother No problems noted. Father No problems noted. no significant family history (Denies any marked paternal or maternal family history including HD, DM, CA.) Surgical History (Updated 01/26/23 @ 20:[address] Madelaine Delgado MD) History of bilateral breast reduction surgery History of surgery on lower extremity Social History (Updated 01/26/23 @ 20:[address] Madelaine Delgado MD) household members: spouse Smoking Status: Never smoker alcohol intake: never substance use type: does not use ROS ROS Narrative Admission Review of Systems: CONSTITUTIONAL: No weight loss, + fever, chills, weakness or fatigue. HEENT: Eyes: No visual loss, blurred vision, double vision or yellow sclerae. Ears, Nose, Throat: No hearing loss, sneezing, congestion, runny nose or sore throat. SKIN: + Right upper extremity erythema, edema, discomfort. CARDIOVASCULAR: No chest pain, chest pressure or chest discomfort, palpitations, edema, orthopnea, syncopal events. RESPIRATORY: No shortness of breath, cough or sputum, wheezing, hemoptysis. GASTROINTESTINAL: + anorexia, nausea. No vomiting or diarrhea, abdominal pain, melena, BRBPR. GENITOURINARY: No dysuria, frequency, urgency or retention. NEUROLOGICAL: No headache, dizziness, syncope, paralysis, ataxia, numbness or tingling in the extremities, focal weakness, change in bowel or bladder control, seizure. MUSCULOSKELETAL: + muscle, back pain, joint pain or stiffness. HEMATOLOGIC: + anemia, bleeding or bruising. LYMPHATICS: No enlarged nodes. No history of splenectomy. PSYCHIATRIC: No history of depression or anxiety. ENDOCRINOLOGIC: No reports of sweating, cold or heat intolerance. No polyuria or polydipsia. ALLERGIES: No history of asthma, hives, eczema or rhinitis. Vital Signs Vital Signs Vital Signs: 01/26/23 16:27 01/26/23 17:14 01/26/23 19:15 Temperature 97.1 F L 98.3 F Temperature Source Temporal Oral Pulse Rate 74 74 Respiratory Rate 16 16 Blood Pressure 117/75 102/67 Blood Pressure Mean 89 78 Pulse Ox 97 96 Oxygen Delivery Method Room Air Room Air Room Air Physical Exam Narrative Physical Examination: General: Awake, alert, oriented x 3 and cooperative, seated upright in the ED bed, fatigued, notes some discomfort to the right upper extremity but more aching. Skin: Normal color, normal turgor, no icterus, no cyanosis except for right upper extremity with blanching erythema mid forearm up to the shoulder wrapping around underneath the armpit toward the upper back with no severe increased warmth compared to the other skin or other extremity and no significant lymphadenopathy noted with a small region near the elbow that was the site of the I&D with some mild scar tissue but otherwise no drainage or purulence or ballotability. HEENT: AT/NC, EOMI, PERRLA, moderately dry MM, no carotid bruits or JVD noted. Lungs: CTA bilaterally, moderate effort, mild decrease BL bases, no rales, ronchi or wheezing. Heart: Regular rate and rhythm; no gallop, rub audible. Abdomen: Soft, NTTP, ND, mildly hyperactive BS, no HSM. Extremities: No cyanosis, no clubbing, see skin, very minimally noted nonpitting edema to the region affected. Neurological: Patient awake, alert, oriented as noted, cognitive function intact; pupils equally reactive to light and accommodation, cranial nerves II-XII grossly normal, moving all 4 extremities although mildly limited right upper extremity given discomfort with movement but not markedly impaired, strength accordingly mildly globally decreased. Psychiatric: Affect appears fatigued, no acute evidence of depressive or anxiety feelings. Results Lab / Micro Data 01/26/23 17:05 01/26/23 17:05 Labs: Laboratory Results - last 24 hr 01/26/23 17:05: WBC 6.1, RBC 3.63 L, Hgb 11.8 L, Hct 34.6 L, MCV 95.3, MCH 32.5 H, MCHC 34.1, RDW Std Deviation 43.3, RDW Coeff of Yoselin 12.4, Plt Count 171, MPV 9.3, Immature Gran % (Auto) 0.300, Neut % (Auto) 84.1 H, Lymph % (Auto) 8.5 L, [place] % (Auto) 6.4, Eos % (Auto) 0.2, Baso % (Auto) 0.5, Absolute Neuts (auto) 5.1, Absolute Lymphs (auto) 0.52 L, Nucleated RBC % 0, Differential Comment SCANNED, PT 15.6 H, INR 1.2, APTT 34.3, D-Dimer Quant (PE/DVT) 0.62 H*, Sodium 135 L, Potassium 3.6, Chloride 102, Carbon Dioxide 26.0, Anion Gap 7, BUN 12, Creatinine 0.79, Est GFR (MDRD) Af Amer 96, Est GFR (MDRD) Non-Af 80, BUN/Creatinine Ratio 15.1, Glucose 99, Lactic Acid 1.0, Calcium 8.8, Total Bilirubin 0.80, AST 37, ALT 60 H, Alkaline Phosphatase 158 H, Total Creatine Kinase 59, Total Protein 7.9, Albumin 3.7, Globulin 4.2, Albumin/Globulin Ratio 0.9 Micro: Microbiology 01/26/23 17:10 Nasal Secretion SARS-CoV-2 Antigen (Rapid) - Final Radiology Impression Humerus X-Ray 01/26/23 17:48 IMPRESSION: Inflammatory changes in the soft tissues of the distal forearm and elbow without definitive evidence for acute osteomyelitis. Electronically Signed: Mars Bautista MD at 18:42 EDT , Assessment & Plan Assessment/Plan (1) Cellulitis: PLAN: Plan The patient is a 57 y/o F w/ PMHx: HLD, Suspected Chronic normocytic anemia who presents to the [facility] ED on 01/26/23 with history of right upper extremity erythema starting approximately 2 weeks prior treated with antibiotic therapy and eventual I&D with resolution however now reoccurred and worsening over the last 48 hours with subjective fever, chills, malaise, anorexia, nausea. #1. RUE Extremity Cellulitis, Failed outpatient abx therapy, recent prior cellulitis and abscess s/p I+D: Will admit to [facility], maintain on IV vancomycin and IV Zosyn per cellulitis order set given failed outpatient antibiotic therapy although we will attempt to de-escalate as quickly as possible, CRP and ESR requested, if any drainage from prior I+D region would obtain Wound Cx/Wound MRSA PCR, plan repeat CBC in AM, continue affected extremity elevation above heart when seated and in bed, monitor erythema outline with VS checks, pending RUE duplex US to assure no DVT concurrently, PRN pain regimen, PRN antiemetics, given atypical history and pattern to be cautious given exposure to the leonard living in [place] 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 #2. Hyperlipidemia: We will continue patient on statin therapy. #3. Normocytic anemia, unclear chronicity: Admission hemoglobin 11.8, MCV 90.3.3, unclear if acute on chronic, chronic or acute as no prior baseline labs for comparison, will repeat CBC in a.m. to further elucidate. #4. DVT prophylaxis: Low risk, lower suspicion for DVT awaiting duplex ultrasound currently and if positive certainly would initiate oral anticoagulant therapy. Charges/Coding Visit Charges Inpatient E&M: 96663 Init Hosp L2
[2023-01-26 19:39] VITALS: BMI 27.8
[2023-01-26 19:42] VITALS: BP 102/67; PULSE 74; RESP 16; TEMP 36.8; O2SAT 96
[2023-01-26] MEDS: Vancomycin IV 1,000 MG/200 ML BAG 200 MG IV (20:05)
[2023-01-26 20:17] VITALS: BMI 27.6
[2023-01-26 20:24] VITALS: BP 113/65; PULSE 80; RESP 12; TEMP 37.1; O2SAT 99
--- NOTE | 2023-01-26 20:42 | PCM.RX.CS ---
Consult Antibiotic Management Pharmacy has been consulted to manage selected antiobiotic: Vancomycin Type of Intervention Type of Consult: New start Suspected Infection Suspected Infection: Skin/Soft tissue Labs Labs: Sodium 135 mmol/L (136-145) L 01/26/23 17:05 Potassium 3.6 mmol/L (3.5-5.1) 01/26/23 17:05 Chloride 102 mmol/L (98-107) 01/26/23 17:05 Carbon Dioxide 26.0 mmol/L (21.0-32.0) 01/26/23 17:05 Anion Gap 7 (5-15) 01/26/23 17:05 BUN 12 mg/dL (7-18) 01/26/23 17:05 Creatinine 0.79 mg/dL (0.55-1.02) 01/26/23 17:05 Est GFR (MDRD) Af Amer 96 mL/min (>60) 01/26/23 17:05 Est GFR (MDRD) Non-Af 80 mL/min (>60) 01/26/23 17:05 BUN/Creatinine Ratio 15.1 RATIO (10-20) 01/26/23 17:05 Glucose 99 mg/dL (74-106) 01/26/23 17:05 Microbiology Microbiology: Microbiology 01/26/23 17:10 Nasal Secretion SARS-CoV-2 Antigen (Rapid) - Final Dosing Weight Weight used for dosin kg Estimated Creatinine Clearance Estimated Creatinine Clearance: 63 mls/min Goal Trough Goal Trough: 15-20 mcg/mL Pharmacy Plan for Drug Dosing Pharmacy Plan for Drug Dosing: NEW START IV VANCOMYCIN Consulting Physician: Dr. Delgado Indication: Cellulitis (failed outpatient therapy) Goal Trough: 15-20 SrCr: 0.79 CrCl: 63 mls/min Comments: pt received a 1000mg dose in the ER on 01/26/23 at 2005 Vancomycin Dose: based on pts weight and renal function, recommend an initial dose of 750mg q12h starting 01/27/23 at 0800. trough prior to the 4th total dose Pending Level: 01/28/23 at 0730 Pharmacy Service will continue to monitor and adjust dosing as required. Follow-Up Labs Follow-Up Labs: Trough: Vancomycin (01/28/23 at 0730)
[2023-01-26] MEDS: 0.9% Normal Saline 1,000 ML 125 ML IV (20:43)
[2023-01-26 20:51] LABS: Erythrocyte Sedimentation Rate 66 mm/hr (0-30)
[2023-01-26] MEDS: Atorvastatin Calcium 20 MG Tablet PO (21:49)
[2023-01-27] MEDS: Acetaminophen 325 MG Tablet 650 MG PO (02:13)
[2023-01-27 02:21] VITALS: BP 125/82; PULSE 79; RESP 16; TEMP 37.1; O2SAT 98
[2023-01-27] MEDS: 0.9% Normal Saline 1,000 ML 125 ML IV ×3 (05:02→21:31)
[2023-01-27 06:00] VITALS: BMI 27.6
[2023-01-27 06:59] LABS: Absolute Lymphocyte Count 0.53 X10^3/uL (0.83-4.51); Absolute Neutrophil Count 2.9 X10^3/uL (2.0-7.7); Basophil# 0.02 X10^3/uL; Basophil% 0.5 % (0-1); Eosinophil# 0.04 X10^3/uL; Hematocrit 30.7 % (37-47); Hemoglobin 10.5 g/dL (12.0-15.0); Lymphocyte # 0.53 X10^3/ul (0.83-4.51); Lymphocyte % 13.8 % (19-41); Mean Corp Hgb Conc 34.2 g/dL (32-36); Mean Corpuscular Hgb 33.2 pg (27.0-32.0); Mean Corpuscular Volume 97.2 fL (81-99); Monocyte# 0.33 X10^3/uL; Monocyte% 8.6 % (0-10); NRBC Flagged by Analyzer 0 % (0-5); Neutrophil # 2.91 X10^3/uL (2.7-7.7); Neutrophil % 75.8 % (47-70); POSITIVE DIFFERENTIAL YES; Platelet Count 143 K/mm3 (150-450); RBC Distribution Width CV 12.3 % (11.6-14.6); Red Blood Count 3.16 M/mm3 (4.2-5.4); White Blood Count 3.8 K/mm3 (4.4-11.0)
[2023-01-27 07:06] LABS: Differential Indicated SCAN CRITERIA MET
--- NOTE | 2023-01-27 07:11 | PN.HOSP_ITS ---
Reason for Visit Reason for Visit: Diagnoses Cellulitis, unspecified (01/26/23) Subjective Subjective Follow-up for cellulitis right upper extremity. Objective Data Objective Data Vital Signs: Vital Signs Temp Pulse Resp BP Pulse Ox O2 Del Method 98.8 F 79 16 125/82 H 98 Room Air 01/27/23 02:21 01/27/23 02:21 01/27/23 02:21 01/27/23 02:21 01/27/23 02:21 01/27/23 02:21 Oxygen Delivery Method Room Air Weight: 150 lb 11.187 oz Body Mass Index (BMI) 27.6 Intake & Output: Intake and Output for Last 24 Hours 01/25/23 01/26/23 01/27/23 23:59 23:59 23:59 Intake Total 700 / 700 1050 / 1050 Balance 700 / 700 1050 / 1050 Lab / Micro Data 01/27/23 05:35 01/27/23 05:35 Labs: Laboratory Results - last 24 hr 01/26/23 17:05: WBC 6.1, RBC 3.63 L, Hgb 11.8 L, Hct 34.6 L, MCV 95.3, MCH 32.5 H, MCHC 34.1, RDW Std Deviation 43.3, RDW Coeff of Yoselin 12.4, Plt Count 171, MPV 9.3, Immature Gran % (Auto) 0.300, Neut % (Auto) 84.1 H, Lymph % (Auto) 8.5 L, [place] % (Auto) 6.4, Eos % (Auto) 0.2, Baso % (Auto) 0.5, Absolute Neuts (auto) 5.1, Absolute Lymphs (auto) 0.52 L, Nucleated RBC % 0, Differential Comment SCANNED, ESR 66 H, PT 15.6 H, INR 1.2, APTT 34.3, D-Dimer Quant (PE/DVT) 0.62 H* , Sodium 135 L, Potassium 3.6, Chloride 102, Carbon Dioxide 26.0, Anion Gap 7, BUN 12, Creatinine 0.79, Est GFR (MDRD) Af Amer 96, Est GFR (MDRD) Non-Af 80, BUN/Creatinine Ratio 15.1, Glucose 99, Lactic Acid 1.0, Calcium 8.8, Total Bilirubin 0.80, AST 37, ALT 60 H, Alkaline Phosphatase 158 H, Total Creatine Kinase 59, C-React Prot Ext Range 111.00 H, Total Protein 7.9, Albumin 3.7, Globulin 4.2, Albumin/Globulin Ratio 0.9 01/27/23 05:35: WBC 3.8 L, RBC 3.16 L, Hgb 10.5 L, Hct 30.7 L, MCV 97.2, MCH 33.2 H, MCHC 34.2, RDW Std Deviation 44.0 H, RDW Coeff of Yoselin 12.3, Plt Count 143 L, MPV 10.0, Immature Gran % (Auto) 0.300, Neut % (Auto) 75.8 H, Lymph % ( Auto) 13.8 L, [place] % (Auto) 8.6, Eos % (Auto) 1.0, Baso % (Auto) 0.5, Absolute Neuts (auto) 2.9, Absolute Lymphs (auto) 0.53 L, Nucleated RBC % 0 Micro: Microbiology 01/26/23 17:10 Nasal Secretion SARS-CoV-2 Antigen (Rapid) - Final Radiography Diagnostic Testing: Radiology Impression Humerus X-Ray 01/26/23 17:48 IMPRESSION: Inflammatory changes in the soft tissues of the distal forearm and elbow without definitive evidence for acute osteomyelitis. Electronically Signed: Mars Bautista MD at 18:42 EDT , Physical Exam Narrative Seen and examined. Patient had 2 days of gradual onset of pain and redness around the biceps area and then moved distally. Patient denies headache. No fever. Physical exam General: Alert, Oriented x3, Cooperative HEENT: Atraumatic, PERRLA, EOMI, Normocephalic Oral: Oral mucosa dry. No Gingival or Mucosal Lesions/ Ulcerations Neck: Supple, No JVD, Negative Carotid Bruits Lungs: Air entry diminished in bilateral lung bases. No crepitation/rhonchi Cardiovascular: Regular rate, Regular Rhythm, Normal S1, Normal S2, No murmurs Abdomen: Bowel Sounds Present, Soft, Non Tender, Non-Distended : No renal angle tenderness. No suprapubic tenderness. Extremities: No edema, Capillary Refill Less than 3 Seconds Skin: Mild erythema, tenderness over right forearm. Old area of cellulitis has healed. Musculoskeletal: No Tenderness to Palpation of Joints or Extremities Neurological: Cranial nerves II-XII grossly intact, DTR 2+/4 and Symmetrical, Neuro grossly intact Psych/Mental Status: Normal Affect, Appropriate. Assessment & Plan Assessment/Plan (1) Cellulitis: QUALIFIERS: Laterality: right Site of cellulitis: extremity Site of cellulitis of extremity: upper extremity Qualified Code(s): L03.113 - Cellulitis of right upper limb PLAN: Plan The patient is a 57 y/o F was admitted on [facility] right upper extremity erythema starting approximately 2 weeks prior treated with antibiotic therapy and eventual I&D with resolution however now reoccurred and worsening over the last 48 hours with subjective fever, chills, malaise, anorexia, nausea. #1. RUE Extremity Cellulitis, Failed outpatient abx therapy, recent prior cellulitis about 2 weeks ago and abscess s/p I+D: Patient admitted to [facility] floor. Patient on IV vancomycin and Zosyn. CRP and ESR elevated. CT of upper EXTR does not show localized collection but soft tissue inflammation. #2. Hyperlipidemia: continue patient on statin therapy. #3. Normocytic anemia, chronic: Admission hemoglobin 11.8, MCV 90.3.3, no major change on repeat CBC. Most likely chronic anemia #4. DVT prophylaxis: Low risk, lower suspicion for DVT awaiting duplex ultrasound currently and if positive certainly would initiate oral anticoagulant therapy. Charges/Coding Visit Charges Inpatient E&M: 93241 Subs Hosp L2
[2023-01-27 07:42] LABS: ALB/GLOB Ratio 0.8 RATIO (0.9-2.4); AST(SGOT) 103 U/L (15-37); Alanine Aminotransfer ALT/SGPT 102 U/L (13-56); Albumin, Serum 2.9 g/dL (3.2-5.0); Alkaline Phosphatase 163 U/L (45-117); Anion Gap 3 (5-15); BUN 10 mg/dL (7-18); Chloride 110 mmol/L (98-107); Creatinine, Serum 0.71 mg/dL (0.55-1.02); EST Glomerular Filtration Rate 90 mL/min (>60); Est Glom Filt Rate - Afr Amer 109 mL/min (>60); Estimated Creatinine Clearance 69.98 ml/min; Globulin 3.6 g/dL (2.2-4.2); Glucose 109 mg/dL (74-106); Potassium 3.4 mmol/L (3.5-5.1); Protein, Total 6.5 g/dL (6.4-8.2); Sodium Level 140 mmol/L (136-145)
[2023-01-27 08:00] VITALS: BP 110/68; PULSE 72; RESP 16; TEMP 36.8; O2SAT 97
--- NOTE | 2023-01-27 10:00 | CASEMGMT ---
LEANDRO YORK Assessment: Face to Face with pt for initial transition planning/care coordination assessment. LEANDRO YORK introduced self and role at [facility], pt voices understanding and consents to assessment. Pt is A/O x4 and answers all questions appropriately at this time. Pt sitting up in bed in no distress. Care providers, pharmacy, and demographics verified/updated. Admitting Dx: cellulitis, failed outpt antibiotic therapy PCP:Piero Specialists:Pt denies Preferred Pharmacy:[facility] Insurance: MMO Prescription Benefit: yes LNOK: Drew Arias, ; Olga Lidia Herbert, mother Living Arrangements: Pt lives with and son in a single story home with 3 steps to enter. Pt reports she is I in ADLs and denies concerns at home. Transportation: Pt drives self and denies concerns with transportation. DME/HHC/SNF:Pt denies having any DME in the home, previous HHC or SNF stays. Pt states no concerns with going home at time of dc. Pt denies any open areas with her cellulitis. Pt states no further concerns/needs. CM to follow. Advised pt to ask CM if any further question/concerns/needs arise, voices understanding. Pt Goal:Home Plan: Home ?
[2023-01-27 14:00] VITALS: BP 115/72; PULSE 76; RESP 16; TEMP 36.9; O2SAT 99
[2023-01-27 21:17] VITALS: BP 124/92; PULSE 71; RESP 16; TEMP 37.1; O2SAT 97
[2023-01-27] MEDS: DiphenhydrAMINE 50 MG/ML Syringe 25 MG IV (21:22)
[2023-01-28] MEDS: 0.9% Normal Saline 1,000 ML 125 ML IV (05:49)
[2023-01-28 06:00] VITALS: BMI 28.2
[2023-01-28 06:18] VITALS: BP 107/80; PULSE 64; RESP 16; TEMP 37.1; O2SAT 100
--- NOTE | 2023-01-28 07:17 | DCINST_ITS ---
Discharge Instructions Diet Discharge Diet: No restrictions Activity Discharge Activity: Return to Normal Activity Weight Bearing Status: Weight bearing as tolerated Dressing / Incision Call your doctor if you observe: Fever of 101 or Higher, Coldness, Increased Pain, Numbness or Tingling, Change in Color, Inability to urinate, Inability to have a bowel movement, Using more than 1 pad per hour, Shortness of breath, Dizziness, Fainting spells, Swelling in the ankles, Chest pain, Prolonged hiccupping, Increased palpitations (irregular heartbeat) and Calf discomfort Follow Up Care When: IN 2 WEEKS Test Results: Test results from this visit will be discussed in further detail at your follow- up appointment, if applicable. Discharge Plan Admission Admit Date/Time: 01/26/23 19:37 Attending Provider: Ethan Greenwood Primary Care Provider: Edin Harry Consulting Providers: Madelaine Delgado Instructions Additional Instructions / Restrictions: No heavy pushing, lifting or heavy work from right upper extremity Discharge Orders/Prescriptions Prescriptions: New cephalexin 500 mg capsule 500 mg PO TID 7 Days Qty: 21 0RF doxycycline monohydrate 100 mg tablet 100 mg PO BID 7 Days Qty: 14 0RF Continued simvastatin 40 mg tablet 40 mg PO QODAY calcium carbonate-vitamin D2 600 mg calcium- 200 unit tablet PO DAILY Referrals / Follow Up: Edin Harry DO [Primary Care Provider] - Within 1 Week Disposition Disposition (needs filled in before D/C Order can be placed): Home, Self Care
--- NOTE | 2023-01-28 07:20 | DS.PCM_ITS ---
Providers Date of Admission: 01/26/23 Primary Care Physician: Dr. Edin Harry, Reason For Visit: CELLULITIS, FAILED OUTPAITENT ABX THERAPY Diagnosis Discharge Diagnosis (1) Cellulitis: Status: Acute Code(s): L03.90 - Cellulitis, unspecified Qualifiers: Laterality: right Site of cellulitis: extremity Site of cellulitis of extremity: upper extremity Qualified Code(s): L03.113 - Cellulitis of right upper limb Plan The patient is a 57 y/o F was admitted on [facility] right upper extremity erythema starting approximately 2 weeks prior treated with antibiotic therapy and eventual I&D with resolution however now reoccurred and worsening over the last 48 hours with subjective fever, chills, malaise, anorexia, nausea. #1. RUE Extremity Cellulitis, Failed outpatient abx therapy, recent prior cellulitis about 2 weeks ago and abscess s/p I+D: Patient admitted to [facility] floor. Patient on IV vancomycin and Zosyn. CRP and ESR elevated. CT of upper EXTR does not show localized collection but soft tissue inflammation. 01/28: Extent of cellulitis much improved on right upper arm shoulder area around the scapula. No induration or swelling. Very mild tenderness but has much improved. Patient is discharged on Keflex and doxycycline for 7 more days. P atient has Keflex leftover. Follow-up PCP. #2. Hyperlipidemia: continue patient on statin therapy. #3. Normocytic anemia, chronic: Admission hemoglobin 11.8, MCV 90.3.3, no major change on repeat CBC. Most likely chronic anemia #4. DVT prophylaxis: Low risk, lower suspicion for DVT awaiting duplex ultrasound currently and if positive certainly would initiate oral anticoagulant therapy. Medications at Discharge Home Medications simvastatin 40 mg tablet 40 mg PO QODAY cholestrol 03/04/20 calcium carb-ergocalciferol (vit D2) 600 mg calcium-200 unit tablet tab PO DAILY supplement 01/26/23 cephalexin 500 mg capsule 500 mg PO TID 7 days #21 caps 01/28/23 doxycycline monohydrate 100 mg tablet 100 mg PO BID 7 days #14 tabs 01/28/23 Physical Exam Narrative Seen and examined. Patient had 2 days of gradual onset of pain and redness around the biceps area and then moved distally. Patient denies headache. No fever. Physical exam General: Alert, Oriented x3, Cooperative HEENT: Atraumatic, PERRLA, EOMI, Normocephalic Oral: Oral mucosa dry. No Gingival or Mucosal Lesions/ Ulcerations Neck: Supple, No JVD, Negative Carotid Bruits Lungs: Air entry diminished in bilateral lung bases. No crepitation/rhonchi Cardiovascular: Regular rate, Regular Rhythm, Normal S1, Normal S2, No murmurs Abdomen: Bowel Sounds Present, Soft, Non Tender, Non-Distended : No renal angle tenderness. No suprapubic tenderness. Extremities: No edema, Capillary Refill Less than 3 Seconds Skin: Significant improvement over the right arm forearm shoulder area and scapular area over right upper extremity. 1 lymph node palpable over left axillary region, lateral wall. Old area of cellulitis has healed. Musculoskeletal: No Tenderness to Palpation of Joints or Extremities Neurological: Cranial nerves II-XII grossly intact, DTR 2+/4 and Symmetrical, Neuro grossly intact Psych/Mental Status: Normal Affect, Appropriate. Weight / BMI Weight Weight: 154 lb 8 oz Body Mass Index (BMI) 28.2 ABG / Lab / Microbiology Data 01/27/23 05:35 01/27/23 05:35 Laboratory: Laboratory Results - last 24 hr 01/27/23 05:35: Diff Path Review November, Sodium 140, Potassium 3.4 L, Chloride 110 H, Carbon Dioxide 27.0, Anion Gap 3 L, BUN 10, Creatinine 0.71, Estim Creat Clear Calc 69.98, Est GFR (MDRD) Af Amer 109, Est GFR (MDRD) Non-Af 90, BUN/ Creatinine Ratio 14.0, Glucose 109 H, Calcium 8.0 L, Total Bilirubin 0.60, AST 103 H, ALT 102 H, Alkaline Phosphatase 163 H, Total Protein 6.5, Albumin 2.9 L, Globulin 3.6, Albumin/Globulin Ratio 0.8 L Microbiology: Microbiology 01/26/23 17:10 Nasal Secretion SARS-CoV-2 Antigen (Rapid) - Final Radiography Diagnostic Testing: Radiology Impression Venous Doppler Study 01/26/23 18:15 Interpretation Summary No evidence for acute deep venous thrombosis[right] upper extremity with patent and compressible cephalic and basilic veins. Ordering Physician: Catalino Carr Referring Physician: Edin Harry Performed By: Josias Whelan RVT ??? Meaningful Use Info Meaningful Use Diagnoses (Choose all that apply): None applicable Discharge Plan Admission Admit Date/Time: 01/26/23 19:37 Attending Provider: Ethan Greenwood Primary Care Provider: Edin Harry Consulting Providers: Madelaine Delgado Instructions Additional Instructions / Restrictions: No heavy pushing, lifting or heavy work from right upper extremity Discharge Orders/Prescriptions Prescriptions: New cephalexin 500 mg capsule 500 mg PO TID 7 Days Qty: 21 0RF doxycycline monohydrate 100 mg tablet 100 mg PO BID 7 Days Qty: 14 0RF Continued simvastatin 40 mg tablet 40 mg PO QODAY calcium carbonate-vitamin D2 600 mg calcium- 200 unit tablet PO DAILY Referrals / Follow Up: Edin Harry DO [Primary Care Provider] - Within 1 Week Disposition Disposition (needs filled in before D/C Order can be placed): Home, Self Care Charges/Coding Visit Charges Inpatient E&M: 88624 Disch Hosp >30min
[2023-01-28 08:14] LABS: Vancomycin, Trough Level 7.8 ug/mL (5.0-15.0)
--- NOTE | 2023-01-28 08:45 | PCM.RX.CS ---
Consult Antibiotic Management Pharmacy has been consulted to manage selected antiobiotic: Vancomycin Type of Intervention Type of Consult: Follow-up Suspected Infection Suspected Infection: Skin/Soft tissue Prior Doses of Antibiotics Prior Doses of Antibiotics Received/Current Regimen: Vancomycin 1000 mg ER dose on 01/26/23 @ 2004 750 mg Q12H on 01/27 @ 0900, 01/28 @ 2008 Labs Labs: Sodium 140 mmol/L (136-145) 01/27/23 05:35 Potassium 3.4 mmol/L (3.5-5.1) L 01/27/23 05:35 Chloride 110 mmol/L (98-107) H 01/27/23 05:35 Carbon Dioxide 27.0 mmol/L (21.0-32.0) 01/27/23 05:35 Anion Gap 3 (5-15) L 01/27/23 05:35 BUN 10 mg/dL (7-18) 01/27/23 05:35 Creatinine 0.71 mg/dL (0.55-1.02) 01/27/23 05:35 Est GFR (MDRD) Af Amer 109 mL/min (>60) 01/27/23 05:35 Est GFR (MDRD) Non-Af 90 mL/min (>60) 01/27/23 05:35 BUN/Creatinine Ratio 14.0 RATIO (10-20) 01/27/23 05:35 Glucose 109 mg/dL (74-106) H 01/27/23 05:35 Vancomycin Trough 7.8 ug/mL (5.0-15.0) 01/28/23 07:36 Microbiology Microbiology: Microbiology 01/26/23 17:10 Nasal Secretion SARS-CoV-2 Antigen (Rapid) - Final Dosing Weight Weight used for dosin kg Estimated Creatinine Clearance Estimated Creatinine Clearance: crcl ~ 70 Goal Trough Goal Trough: 15-20 mcg/mL Pharmacy Plan for Drug Dosing Pharmacy Plan for Drug Dosing: Vancomycin trough 7.8 at 0736 this AM. New vancomycin dose 1250 mg Q12H based on weight and renal function Pharmacy Service will continue to monitor and adjust dosing as required. Follow-Up Labs Follow-Up Labs: Trough: Vancomycin Date/Time Labs Ordered Labs to be done on [date and time ordered]: 01/29/23@ 2030
[2023-01-28 09:50] VITALS: O2SAT 97
--- NOTE | 2023-01-28 09:53 | PHA.DC_ITS ---
Pharmacy [facility] Pharmacy Service has performed discharge medication reconciliation and counseling for this patient. The patient was counseled on the following discharge medications and changes in medications for homegoing were reviewed. 1. KEFLEX 2. DOXYCYCLINE The Reason for Use, instructions for use, and potential side effects were reviewed for all new medications. The patient's questions regarding all of their medications were answered. The patient was able to verbally demonstrate an understanding of their discharge medications. The patient's discharge medication list was reviewed for discrepancies and discrepancies were resolved. Patient was counselled by Jeo Coreas PharmD Candidate Medications at Discharge Home Medications simvastatin 40 mg tablet 40 mg PO QODAY cholestrol 03/04/20 calcium carb-ergocalciferol (vit D2) 600 mg calcium-200 unit tablet tab PO DAILY supplement 01/26/23 cephalexin 500 mg capsule 500 mg PO TID 7 days #21 caps 01/28/23 doxycycline monohydrate 100 mg tablet 100 mg PO BID 7 days #14 tabs 01/28/23
[2023-01-28] MEDS: Acetaminophen 325 MG Tablet 650 MG PO (10:06)
[2023-01-28 10:09] VITALS: BP 126/91; PULSE 68; RESP 16; TEMP 36.8; O2SAT 99
[2023-01-28 13:01] LABS: Pathologist Review Reviewed
== END 2023-01-28 10:58 | disposition home or self-care (01) | DRG 603 ==
LOC: ED 19:13 → MS3 20:21
PROVIDERS: Admitting Provider Family Medicine; Emergency Provider Emergency Medicine; PCP Student in an Organized Health Care Education/Training Program; Visit Provider Internal Medicine
DX: L03.113 Cellulitis of right upper limb (principal); E78.5 Hyperlipidemia, unspecified; Z20.822 Contact with and (suspected) exposure to COVID-19
CPT/HCPCS: 36415; 73060; 80053; 80202; 82550; 83605; 85025; 85379; 85610; 85652; 85730; 86140; 86618; 87040; 87811; 93971; 99283; J7030; J7040; J7050; A4216